=== PATIENT | female | born 1945 | race Caucasian/White ===

== ENCOUNTER 2024-04-22 09:38 | Outpatient (CLI) | payer MEDICARE, SELFPAY ==
--- NOTE | ~2024-04-22 | CT_ITS ---
Non-contrast CT scan of the Abdomen and Pelvis Clinical indication: Kidney stone Technique: 2.5 mm axial scans were obtained through the abdomen and pelvis without intravenous or or al contrast. Dose reduction technique was used on this scan by utilizing automated exposure control a nd iterative reconstruction technique. The dose-length product (DLP) was 475.41 mGy-cm. Findings: Images through the lung bases reveal no abnormalities. Small hiatal hernia noted. 7 mm nonobstructing left renal stone present. 4 mm nonobstructing right renal stone present. No urete ral stone or hydronephrosis on either side. The liver, spleen, pancreas, and adrenals appear normal. Cholecystectomy clips are present. There are atherosclerotic calcifications of the aorta. . There is no evidence of bowel obstruction. Images through the pelvis were performed. There is no evidence of ascites or lymphadenopathy. Urinary bladder unremarkable. No pelvic mass seen. No ascites. Impression: Nonobstructing bilateral renal stones, as above. Reviewed, dictated and finalized at [facility]. RAFT SERVICER Impression: Nonobstructing bilateral renal stones, as above.
--- OUTSIDE RECORDS SUMMARY | 2024-04-22 10:13 | XMS_ITS | Clinical Summary ---
Author Organization [facility] Address [address] [place] [address] Care Team Providers Care User Support Analyst Supervisor Name Role Phone Jackson Rapp MD Primary Care Provider [phone] Jordan Fuentes MD Unavailable [phone] Sam Wick MD Unavailable [phone] Miscellaneous, Not In File Unavailable Unava ilable Allergies Active Allergy Reactions Criticality Noted Date Comments Ciprofloxacin Other (See comments) Low 09/11/2017 Cipro causes thrush Medications citalopram (CeleXA) 20 mg tabletIndicati ons:Anxiety with Depression Take 1 tablet (20 mg total) by mouth daily 7 Active multivitamin capsule Take 1 capsule by mouth daily Active Lactobac no.41/Bifidoba ct no.7 (PROBIOTIC-10 ORAL) Take 1 tablet by mouth daily Active loratadine (CLARITIN) 10 mg tablet Take 1 tablet (10 mg total) by mouth daily Active acetaminophen 500 mg capsule Take 2 capsules (1,000 mg total) by mouth every 6 (six) hours as needed for fever 4 Active senna-docusate (PERICOLACE) 8.6-50 mg Take 1 tablet by mouth 2 (two) times a day as needed for constipation 60 tablet 4 Active traMADoL (ULTRAM) 50 mg tablet Take 1 tablet (50 mg total) by mouth every 6 (six) hours as needed for pain 27 tablet 1 4 Active Additional Information Patient not taking.Reported on 01/28/2024 atorvastatin (LIPITOR) 40 mg tablet Take 1 tablet (40 mg total) by mouth daily 90 tablet 3 4 025 Active chlorthalidone (HYGROTON) 25 mg tablet Take 0.5 tablets (12.5 mg total) by mouth daily 45 tablet 3 4 025 Active clopidogreL (PLAVIX) 75 mg tabletIndicati ons:Post CABG Take 1 tablet (75 mg total) by mouth daily 90 tablet 3 4 025 Active metoprolol XL (TOPROL-XL) 25 mg extended release tablet Take 1 tablet (25 mg total) by mouth daily 90 tablet 3 4 025 Active ergocalciferol (VITAMIN D) 50,000 unit capsule Take 1.25 mg by mouth once a week 4 Active alendronate (FOSAMAX) 70 mg tablet Take 1 tablet (70 mg total) by mouth once a week 4 Active nitroglycerin (NITROSTAT) 0.[address] 1 tablet (0.4 mg total) under the tongue every 5 (five) minutes as needed for chest pain May repeat dose q 5 min, up to 3 doses total 20 tablet [address] (NexIUM) 40 mg capsule Take 1 capsule (40 mg total) by mouth daily before breakfast 90 capsule [address] (NexIUM) 40 mg capsule Take 1 capsule (40 mg total) by mouth 4 025 Discontin ued(Reord er) Active Problems Problem Noted Date Diagnosed Date Mixed hyperlipidemia 01/28/2024 S/P CABG x 3 07/02/2023 Coronary artery disease due to calcified coronar y lesion 05/15/2023 Atherosclerosis of [place] co ronary artery of [place] heart without angina pectoris 05/08/2023 Abnormal stress test 04/30/2023 Angina pectoris, unspecified 04/30/2023 Chronic left-sided low back pain with left-sided sciatica 07/30/2019 Essential hypertension 07/30/2019 Depression 07/30/2019 History of total right knee replacement 03/27/19 20 Primary osteoarthritis of right knee 09/17/2018 Overview (09/17/2018): Added automatically from request for surgery [id number] Menopause present 09/09/2018 Idiopathic neuropathy 09/18/2017 Subungual hematoma of great toe of left foot 05/2017 Nail discoloration 08/22/2017 Screening for colon cancer 05/31/2017 Urge incontinence of urine 05/31/2017 Pain in joint of right knee 12/04/2016 Non morbid obesity due to excess calories 2016 Acute pain of right shoulder 02/09/2016 Hypertension due to endocrine disorder 6 Depression 11/16/2015 Cold thyroid nodule 08/17/2015 VALENTINA (obstructive sleep apnea) 08/17/2015 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 Multinodular goiter (nontoxic) 07/29/2015 PLMD (periodic limb movement disorder) 6 PNAR (perennial non-allergic rhinitis) 6 Fibrocystic breast changes 09/23/2009 Encounters Date Type Department Care Team Description 01/28/2024 11:00 AM RN UNIT MANAGER Office Visit [facility] at [address] [place] [phone] Sam Wick MD Atherosclerosis of [place] coronary artery of [place] heart without angina pectoris (Primary Dx); S/P CABG x 3; Mixed hyperlipidemia; Essential hypertension from Last 3 Months Surgical History Surgery Date Site/Laterality Comments KIDNEY SURGERY stent CHOLECYSTECTOMY 03/19/1995 - 03/18/1996 APPENDECTOMY 03/19/1956 - 03/18/1957 TOTAL KNEE ARTHROPLASTY 03/19/2018 - 03/18/2019 Right BACK SURGERY 03/19/2018 - 03/18/2019 cyst removal TRIGGER FINGER RELEASE Bilateral Medical History Medical History Date Comments Hypertension GERD (gastroesophageal reflux disease) Kidney stone Arthritis Depression Sleep apnea Thyroid nodule monitored Thyroid goiter Cataract Family History Medical History Relation Name Comments Alcohol abuse Brother Scoliosis Daughter Arthritis Father Cancer Father Clotting disorder Father Heart disease Father Heart disease Mother Pneumonia Mother Stroke Mother Arthritis Sister Relation Name Status Comments Brother Daughter Father Mother Sister Social History Tobacco Use Types Packs/Day Years Used Date Smoking Tobacco: Never Smokeless Tobacco: Never Tobacco Cessation:Counseling Given: Not Answered Alcohol Use Standard Drinks/Week Comments No 0 (1 standard drink = 0.6 oz pur e alcohol) [facility] Utilities Answer Date Recorded In the past 12 months has th e electric, gas, oil, or water company threatened to shut off services in your home? No 05/16/2023 Social Connection and Isolat ion Panel [NHANES] Answer Date Recorded In a typical week, how many times do you talk on the phone with family, friends, or neighbors? More than three times a week 05/16/2023 How often do you get togethe r with friends or relatives? Three times a week 05/16/2023 How often do you attend chur ch or rastafari services? More than 4 times per year 05/16/2023 Do you belong to any clubs o r organizations such as voodoo groups, unions, fraternal or athletic groups, or school groups? No 05/16/2023 How often do you attend meet ings of the clubs or organizations you belong to? Never 05/16/2023 Are you , , di vorced, , never , or living with a partner? 05/16/2023 AUDIT-C Answer Date Recorded Q1: How often do you have a drink containing alcohol? Never 05/16/2023 Q2: How many drinks containi ng alcohol do you have on a typical day when you are drinking? Patient does not drink Q3: How often do you have si x or more drinks on one occasion? Never 05/16/2023 Overall Financial Resource Strain (CARDIA) Answe r Date Recorded How hard is it for you to pa y for the very basics like food, housing, medical care, and heating? Not hard at all 05/16/2023 Hunger Vital Sign Answer Date Recorded Within the past 12 months, y ou worried that your food would run out before you got the money to buy more. Never true 05/16/19 24 Within the past 12 months, t he food you bought just didn't last and you didn't have money to get more. Never true 05/16/2023 PRAPARE - Transportation Answer Date Re corded In the past 12 months, has l ack of transportation kept you from medical appointments or from getting medications? No 04/20 In the past 12 months, has l ack of transportation kept you from meetings, work, or from getting things needed for daily living? No 05/16/2023 Housing Stability Vital Sign Answer Ron e Recorded In the last 12 months, was t here a time when you were not able to pay the mortgage or rent on time? No 05/16/2023 In the last 12 months, how many places have you lived? 1 05/16/2023 In the last 12 months, was t here a time when you did not have a steady place to sleep or slept in a halfway (including now)? No 05/16/2023 Housing Stability Vital Sign Answer Ron e Recorded In the last 12 months, was t here a time when you were not able to pay the mortgage or rent on time? No 05/16/2023 Number of Times Moved in the Last Year Not on fi le 05/16/2023 Homeless in the Last Year Not on file 2023 Personal Safety Answer Date Recorded Have you ever been in or are you currently in a harmful physical or emotional relationship or is someone making you feel afraid or unsafe? Denies 05/15/2023 Comments No Sex and Gender Information Value Date Recorded Sex Assigned at Not on file Legal Sex Female 1:28 AM RN UNIT MANAGER Gender Identity Not on file Sexual Orientation Not on file Obstetrics History Para Term AB IAB SAB Ectopic Multiple Livin g Live Births 3 3 3 Date Outcome GA Total Labor Labor/2nd/3rd Weight Sex Type Anes PTL Magy A1 A5 Name Clin Term Term Term Last Filed Vital Signs Vital Sign Reading Time Taken Comments Blood Pressure 121/81 01/28/2024 10:49 AM RN UNIT MANAGER Pulse 74 01/28/2024 10:49 AM RN UNIT MANAGER Temperature 36.8 ??C (98.2 ??F) 05/21/2023 8:24 AM CS T Respiratory Rate 18 07/02/2023 12:55 PM CDT Oxygen Saturation 96% 06/21/2023 11:24 AM CDT Inhaled Oxygen Concentration - - Weight 96.2 kg (212 lb) 01/28/2024 10:49 AM RN UNIT MANAGER Height 167.6 cm (5' 6 ) 01/28/2024 10:49 AM RN UNIT MANAGER Body Mass Index 34.22 01/28/2024 10:49 AM RN UNIT MANAGER Plan of Treatment Health Maintenance Due Date Last Done Comments Depression Screening 1945 Hepatitis C Screening 1945 Pneumococcal vaccine 65+ (1 of 2 - PCV) 11/21/1953 DTaP/Tdap/Td Vaccine (1 - Tdap) 11/21/1958 Hepatitis B Screening 11/21/1965 Zoster Vaccine (1 of 2) 11/21/1997 Well Visit 65+ 11/21/2012 Covid-19 Vaccine (2 - 2023-2 5 season) 2023 09/13/2020 Influenza Vaccine (#1) 2023 Fall Risk Assessment 05/20/2024 05/21/2023 Osteoporosis Screening-Bone Density Scan 05/02/2025 05/02/2023, 05/02/2023 Breast Cancer Screening-Mammogram Discontinued 01/15/2024, 01/15/2024, 01/15/2024, Additional history exists Procedures Procedure Name Priority Date/Time Associated Diagnosis Comments SCREENING MAMMOGRAM BILATERAL W BRENDAN Schedule Routine, Read Routine (OP Routine) 01/15/2024 2:30 PM CDT Screening mammogram, encounter for from Last 3 Months or Most Recently Relevant to Health Maintenance Results * Screening Mammogram Bilateral W Brendan (01/15/2024 2:30 PM CDT) Anatomical Region Laterality Modality Breast Bilateral Mammography 01/15/2024 7:15 PM CDT Impressions 01/15/2024 7:15 PM CDT There is no mammographic evidence of malignancy. A 1 year screening mammogram is recommended. BI-RADS: 2 - Benign. The patient has been or will be contacted. The patient will be entered into a reminder system with a target due date of 1 year for her next mammogram. Electronically signed by: Roselia Garcia M.D. Narrative 01/15/2024 7:15 PM CDT EXAMINATION: SCREENING MAMMOGRAM BILATERAL W BRENDAN ORDERING HEALTHCARE PROVIDER: SELF SCREENING MAMMOGRAM HISTORY: Routine screening mammography. COMPARISON: ??12/08/2022,11/15/2021, 10/27/2020, 10/24/2019 month 10/16/2018 TECHNIQUE: CC and MLO views of the bilateral breasts were obtained with digital technique using breast tomosynthesis with C view. Computer aided detection was utilized. FINDINGS: DENSITY: The breasts are almost entirely fatty. BREASTS: There are benign-appearing calcifications bilaterally. There are no suspicious masses, suspicious calcifications, or other suspicious findings in either breast. There has been no suspicious interval change. us Self Screening Mammogram IMG MAMMO PROCEDURES Fi nal Result from Last 3 Months or Most Recently Relevant to Health Maintenance Insurance [employer] MEDICARE A[employer] MEDICARE Advance Directives For more information, please contact: [phone] * Full Code (Latest Code Status on File) Date Activated Date Inactivated Comments 05/15/2023 2:03 PM 05/21/2023 8:13 PM * Full Code Date Activated Date Inactivated Comments 07/30/2019 12:47 PM 07/31/2019 5:38 PM Care Teams User Support Analyst Supervisor Relationship Specialty Start Date End Date Jackson Rapp MD 2 [facility] [address] [place] [address] PCP - General Family Medicine 12/08/22 [place] [id number] [facility] [address] [address] Surgeon Cardiothoracic Surgery 05/21/23 Sam Wick MD 2 [facility] [address] [place] [address] Consulting Physician Cardiology 05/21/23 Miscellaneous, Not In File 05/21/23
--- OUTSIDE RECORDS SUMMARY | 2024-04-22 10:13 | XMS_ITS | Patient Health Summary ---
Author Organization [facility] Address [address] [place] [address] Care Team Providers Care Receiving Distribution Station Operator Name Role Phone Jackson Rapp MD Primary Care Provider [phone] Note from [facility],non-owned Affiliates and Associated Physician Practices is amultiple site organization consisting of ambulatory clinics and hospital sitesin [place], [place], [place] and [place]. This disclosure is being madepursuant to the Care Everywhere program and may not contain all information available regarding this patient. Last updated 17.[facility] Allergies * Ciprofloxacin(Other) -Low Criticality Medications * Be aware that medications may not be up to date on this document. Alwaysverify current medications with the patient. * hydroCHLOROthiazide (MICROZIDE) 12.5 MG capsule Take 1 capsule by mouth every 24 hours * citalopram (CELEXA) 20 MG tablet(Started 06/05/2016) Take 1 tablet by mouth at bedtime * atenolol (TENORMIN) 25 MG tablet(Started 02/02/2017) Take 1 tablet by mouth once daily * Multiple Vitamins-Minerals (EYE VITAMINS PO) Take by mouth once daily * LORATADINE ALLERGY RELIEF PO Take by mouth once daily * Other 2 times daily Oligo from Melaleuca(vitamin supplement) * aspirin (ASPIRIN) 325 MG tablet aspirin 325 mg tablet Take 1 tablet twice a day by oral route. * gabapentin (NEURONTIN) 300 MG capsule(Started 02/02/2020) * HYDROcodone-acetaminophen (NORCO) 7.5-325 MG tablet(Started 12/30/2019) * NYAMYC 370250 UNIT/GM powder(Started 02/02/2020) * omeprazole (PRILOSEC) 20 MG capsule omeprazole 20 mg capsule,delayed release * sennosides (SENOKOT) 8.6 MG tablet every 24 hours * DHA-EPA-Vit D0-H82-Pkcie Acid (CARDIOVID PLUS) CAPS Take 1 tablet by mouth once daily Contains Fish oil Active Problems Problem Noted Date Diagnosed Date Essential hypertension 07/30/2019 Chronic left-sided low back pain with left-sided sciatica 07/30/2019 History of total right knee replacement 03/27/19 20 Primary osteoarthritis of right knee 11/08/2018 Hypertension due to endocrine disorder 6 Depression 11/16/2015 Social History Tobacco Use Types Packs/Day Years Used Date Smoking Tobacco: Never Smokeless Tobacco: Never Alcohol Use Standard Drinks/Week Comments Never 0 (1 standard drink = 0.6 oz pur e alcohol) AUDIT-C Answer Date Recorded Frequency of Alcohol Consumption Never 01/17/2019 Average Number of Drinks Not on file 019 Frequency of Binge Drinking Not on file 03/2018 Sex and Gender Information Value Date Recorded Sex Assigned at Not on file Gender Identity Not on file Sexual Orientation Not on file Last Filed Vital Signs Vital Sign Reading Time Taken Comments Blood Pressure 158/85 08/25/2020 8:21 AM CDT Pulse 54 08/25/2020 8:21 AM CDT Temperature 37 ??C (98.6 ??F) 02/14/2019 7:55 AM WRAP TURNER Respiratory Rate 18 02/14/2019 7:55 AM WRAP [facility]URNER Oxygen Saturation 95% 02/14/2019 7:55 AM WRAP TURNER Inhaled Oxygen Concentration - - Weight 101.2 kg (223 lb) 08/25/2020 8:21 AM CDT Height 167.6 cm (5' 6 ) 08/25/2020 8:21 AM CDT Body Mass Index 35.99 08/25/2020 8:21 AM CDT Medical Devices Implanted Type Area Wild Life Manager Device Identifier Shelf Expiration Date Model / Serial / Lot Cmnt Bone Djo Srg Cblt 40gm Hvisc Strl Implanted:Qty: 1 on 02/12/2019 by Meño Hirsch MD at [facility] Right: Knee [employer] 05/09/2020 [id number] / / [id number] Tray Tib 71mm Kn Cocr I Beam Implanted:Qty: 1 on 02/12/2019 by Meño Hirsch MD at [facility] Right: Knee [employer] 01/14/2029 [id number] / / [id number] Cmpnt Fem Kn Rt Cr Cmnt Prm Vngrd Intlk Implanted:Qty: 1 on 02/12/2019 by Meño iHrsch MD at [facility] Right: Knee [employer] 12/07/2028 [id number] / / [id number] Cmpnt Ptlr 28mm 1 Pg Wire Ascnt Arcm Kn Implanted:Qty: 1 on 02/12/2019 by Meño Hirsch MD at [facility] Right: Knee [employer] 02/01/2024 [id number] / / [id number] Brng [id number] Vngrd Arcm Kn Ant Stab Implanted:Qty: 1 on 02/12/2019 by Meño Hirsch MD at [facility] Right: Knee [employer] 09/07/2023 [id number] / / [id number] Procedures * IL TANGNTL BX SKIN SINGLE LES(Performed 08/25/2020) Performed for SCC (squamous cell carcinoma), hand, right * IL CHMSRG MOHS MG TQ H/N/H/F/G 1ST STAG 5 BLOC(Performed 08/25/2020) Performed for SCC (squamous cell carcinoma), hand, right * DERMATOPATHOLOGY(Performed 08/25/2020) Performed for SCC (squamous cell carcinoma), hand, right * DERMPATH SLIDE CONSULT(Performed 08/18/2020) * XR KNEE RIGHT 3VW(Performed 02/03/2020) Performed for Aftercare following right knee joint replacement surgery * XR KNEE RIGHT 3VW(Performed 03/25/2019) Performed for Acute pain of right knee * HGB HCT PANEL(Performed 02/14/2019) * HGB HCT PANEL(Performed 02/13/2019) * NEURAXIAL BLOCK(Performed 02/12/2019) * ARTHROPLASTY TOTAL KNEE(Performed 02/12/2019) * HOME CPAP/BIPAP FOR HOSP USE: NOCTURNAL 02(Performed 02/12/2019) * CARDIAC EKG ORDER(Performed 01/21/2019) * COMPREHENSIVE METABOLIC PANEL(Performed 01/17/2019) Performed for Preoperative examination * CULTURE MSSA/MRSA(Performed 01/17/2019) Performed for Preoperative examination Results * IL TANGNTL BX SKIN SINGLE LES (08/25/2020 3:53 PM CDT) Narrative Nima De La Fuente MD - 08/25/2020 3:53 PM CDT Nima De La Fuente MD ? 08/25/2020 ??3:54 PM Risks, benefits and alternatives to shave biopsy were discussed with the patient. Verbal consent was obtained. Encounter Diagnoses Name Primary? ? ? SCC (squamous cell carcinoma), hand, right Yes ? ? Neoplasm of uncertain behavior of skin ?? Location: R dorsal hand near 2nd MCP Skin prep: Alcohol Anesthesia: 1% lidocaine with epinephrine Hemostasis: Aluminum chloride Dressing and wound care discussed. Specimen(s) placed in a patient labeled container and sent to [facility] Dermatopathology. Patient agrees to phone call for results and message if not available. Nima De La Fuente MD PROCEDURE/MINOR SURG ICAL ORDERABLES * IL CHMSRG MOHS MG TQ H/N/H/F/G 1ST STAG 5 BLOC (08/25/2020 10:43 AM CDT) Narrative Nima De La Fuente MD - 08/25/2020 10:43 AM CDT Nima De La Fuente MD ? 08/25/2020 ??3:48 PM Date of Service: 08/25/2020 Surgery: Mohs micrographic surgery Tumor Type: Squamous cell carcinoma Location: right lateral hand Derm-Path PreOp Size: ??0.7x0.5 cm. PostOp Size: ??1.3x1.2 cm. Stages: 1 Repair Type: purse string Repair Size: 1.3x1.2cm Suture Material: monocryl 4-0 Mohs Level of Defect: fat Surgeon and Pathologist: Nima De La Fuente MD Assistants: Ochoa Kemp Indications for Mohs Surgery The patient has a 0.7x0.5 cm tumor located on the right lateral hand (triangulation 5 cm to right 1st MCP). ??Removal of the patient's tumor is complicated by the following clinical features: Clinical area critical for tissue conservation (Area H: central face, eyelids, eyebrows, nose, lips, chin, ear, periauricular, methodist, genitalia, hands, feet, ankles, nail units and areola); Poorly-defined clinical tumor borders. Based on my medical judgement, Mohs surgery is the most appropriate treatment for this cancer compared to other treatments. I discussed alternative treatments to Mohs surgery and specifically discussed the risks and benefits of curettage, excision with permanent sections, and foregoing treatment. The rationale for Mohs was explained to the patient and consent was obtained. The risks, benefits and alternatives to therapy were discussed in detail. Specifically, the risks of infection, scarring, bleeding, prolonged wound healing, incomplete removal, allergy to anesthesia, nerve injury and recurrence were addressed. Prior to the procedure, the treatment site was clearly identified and confirmed by the patient. All components of [place] Protocol/PAUSE Rule completed. Nima De La Fuente MD operated in two distinct and integrated capacities as the surgeon and pathologist. STAGE I: The patient was placed supine on the operating table. ??The cancer was identified, outlined with a marker, and verified by the patient. ??The entire surgical field was prepped with Hibiclens. ?? The surgical site was anesthetized using Lidocaine 1% with epinephrine 1:100,000 buffered with sodium bicarbonate 8.4% in a 1:10 ratio. The area of clinically apparent tumor was debulked with 2mm curette. The layer of tissue was then surgically excised using a #15 blade and was then transferred onto a specimen sheet maintaining the orientation of the specimen. Hemostasis was obtained using monopolar electrodessication. The wound site was then covered with a dressing while the tissue samples were processed for examination. The excised tissue was transported to the [facility] histology laboratory maintaining the tissue orientation. ??The tissue specimen was relaxed so that the entire surgical margin was in a a single horizontal plane for sectioning andinked for precise mapping. ??A precise reference map was drawn to reflect the sectioning of the specimen, colored inking of the margins, and orientation on the patient. ??The tissue was processed using horizontal sectioning ofthe base and continuous peripheral margins. ??The histopathologic sections were reviewed in conjunction with the reference map. Total blocks: ??1 Total slides: ?? 3 Frozen sections were examined by the surgeon. No additional tumor was identified on microscopic examination, therefore Mohs surgery was complete. Cell morphology: n/a Pathological pattern: n/a Depth of invasion: n/a Scar tissue: Not Present Perineural invasion: Not Present Inflammation obscuring possible tumor presence: Not Present Reconstruction: Purse String Closure Primary Surgeon : Leisa The open wound was cleansed with Hibiclens and draped in the usual sterile fashion. ??The area was infiltrated with Lidocaine 1% with epinephrine 1:100,000 buffered with sodium bicarbonate 8.4% in a 1:10 ratio. ??A circumferential horizontal buried suture was distributed evenly throughoutthe edge of the wound and the wound was drawn closed. Repair Size: ??1.3x1.2 cm Sutures Used: ??monocryl 4-0 The wound was cleansed with saline and vaseline was applied to the wound surface. A sterile pressure dressing was applied. ?? Wound care instructions were given verbally and in writing. ??The patient left the operating suite in stable condition. ?? Dr. De La Fuente performed the entire surgery, and documentation used to initiate this operative report. I entered the information in our [employer] DocFlowsheet with the information provided by Dr. De La Fuente on her handwritten, paper format, surgical worksheet, which was then used to initiate the create of this note. Dr. De La Fuente then reviewed and edited the note as needed to complete the note. Bruna Osman LPN Nima De La Fuente MD PROCEDURE/MINOR SURG ICAL ORDERABLES * DERMATOPATHOLOGY (08/25/2020 3:33 AM CDT) Case Report Dermatopathology Report ? Case: [id number] ? Authorizing Provider: ??Nima De La Fuente MD ?Collected: ? 08/25/2020 03:33 AM ? Ordering Location: ? [facility] and ?? Received: ?08/26/2020 11:13 AM ? Cutaneous Oncology ? Pathologist: ? Hilda Eugene MD ? Specimen: ?Skin, right dorsal hand near 2nd MCP ? 1 4:45 PM CDT DERMATOPATHOLOGY LABORATORY Final Diagnosis Specimen A. SKIN, right dorsal hand near 2nd MCP: LICHEN PLANUS-LIKE KERATOSIS (BENIGN LICHENOID KERATOSIS) (L82.1) 1 4:45 PM CDT DERMATOPATHOLOGY LABORATORY Clinical History BCC vs SCC vs LPLK 1 4:45 PM CDT DERMATOPATHOLOGY LABORATORY Gross Description Specimen A: Received is one formalin filled container labeled with the patient's name and designated right dorsal hand near 2nd MCP. The specimen consists of a shave biopsy measuring 6x4x1 mm. Jar 0. 4:45 PM CDT DERMATOPATHOLOGY LABORATORY Microscopic Description Specimen A. SKIN, right dorsal hand near 2nd MCP: The epidermis is mildly acanthotic. There is a lichenoid infiltrate with vacuolar changes of basilar keratinocytes and scattered necrotic keratinocytes. 1 4:45 PM CDT DERMATOPATHOLOGY LABORATORY Disclaimer An external and internal positive and negative controls are appropriate for the histochemical, immunohistochemical and immunofluorescence stain(s) in this case (if any), except where stated explicitly. The performance characteristics of the stain(s) cited in this report were developed and its performance characteristic determined by the Dermatopathology Laboratory at [facility], directed by Dr. Monae Haywood. These tests need not be, and therefore are not, approved by the [place] Food and Drug Administration. The tests are used for clinical purposes. Billing Codes Specimen Charges Stain Charges 06908 1 1 4:45 PM CDT DERMATOPATHOLOGY LABORATORY Embedded Images 1 4:45 PM CDT DERMATOPATHOLOGY LABORATORY Pathology/Cytolo gy TISSUE SPECIMEN FROM SKIN / Unknown 08/25/2020 3:33 AM CDT 08/26/2020 11:13 AM CDT Nima De La Fuente MD LAB - PATHOLOGY/CYTO LOGY ORDERABLES Performing Organization Address City/State/[facility] Co de Phone Number DERMATOPATHOLOGY LABORATORY [facility] - Department of Dermatology [facility] Medicine [address] [place] [address], [address] Floor [address] [phone] * DERMPATH SLIDE CONSULT (08/18/2020 12:00 AM CDT) Case Report Dermatopathology Report ? Case: [id number] ? Authorizing Provider: ??Nima De La Fuente MD ?Collected: ? 08/18/2020 12:00 AM ? Ordering Location: ? [facility] D[facility] ?Received: ?08/18/2020 10:05 AM ? Pathologist: ? Martha Rosas, ? MD ? Specimen: ?Slide(s), Right hand, OSC# [id number] ? 1 3:43 PM CDT DERMATOPATHOLOGY LABORATORY Final Diagnosis Specimen A. Slide(s), Right hand, OSC# [id number]: SUPERFICIAL (FOCALLY INVASIVE) SQUAMOUS CELL CARCINOMA ARISING IN AN ACTINIC KERATOSIS (C44.622) (see microscopic description and comment) 1 3:43 PM CDT DERMATOPATHOLOGY LABORATORY Clinical History Materials received from: [employer] [address] [place] [address] [place] [address] Received for Mohs [place] are 4 (H&E) slide(s) labeled [id number]. -Well differentiated Squamous cell carcinoma, microinvasive. -The lesion extends to the deep margin. All slides returned. Appointment Date: 08/06/2020 Any additional sections, special stains or immunohistochemical stains performed by our laboratory will be kept here on file. 1 3:43 PM CDT DERMATOPATHOLOGY LABORATORY Microscopic Description Specimen A. Slide(s), Right hand, OSC# [id number]: Sections reveal parakeratosis, acanthosis and keratinocyte dysmaturation which is most prominent in the lower epidermis. Focal nests are present in the dermis. COMMENT: This case was also reviewed by Dr. Jennifer Shaver who agrees with the diagnosis. 1 3:43 PM CDT DERMATOPATHOLOGY LABORATORY Disclaimer An external and internal positive and negative controls are appropriate for the histochemical, immunohistochemical and immunofluorescence stain(s) in this case (if any), except where stated explicitly. The performance characteristics of the stain(s) cited in this report were developed and its performance characteristic determined by the Dermatopathology Laboratory at [facility], directed by Dr. Monae Haywood. These tests need not be, and therefore are not, approved by the [place] Food and Drug Administration. The tests are used for clinical purposes. Billing Codes Specimen Charges Stain Charges 77159 1 1 3:43 PM CDT DERMATOPATHOLOGY LABORATORY Embedded Images 1 3:43 PM CDT DERMATOPATHOLOGY LABORATORY Pathology/Cytolog y SLIDE / Unknown 08/18/2020 08/18/2020 10:05 AM CDT Nima De La Fuente MD LAB - PATHOLOGY/CYTO LOGY ORDERABLES DERMATOPATHOLOGY LABORATORY [facility] - Department of Dermatology [address], [address] [phone] * XR KNEE RIGHT 3VW (02/03/2020 10:33 AM [facility]AP [facility]NER) Only the most recent of2 resultswithin the time period is included. Anatomical Region Laterality Modality Lower Extremity Computed Radiogr aphy Narrative 02/03/2020 10:35 AM [facility]NER Joi Gold ? 02/18/2020 ??4:44 PM Please see progress notes for result. Meño Hirsch MD DIAGNOSTIC IMAGING O RDERABLES * (ABNORMAL) HGB HCT PANEL (02/14/2019 3:21 AM [facility]) Only the most recent of2 resultswithin the time period is included. Hemoglobin 11.8(L) 12.0 - 15.6 gm/dL 02/14/2019 4:46 AM [facility] Hematocrit 38.6 35.9 - 45.5 % 02/14/2019 4:46 AM [facility] Blood BLOOD SPECIMEN / Unknown Venipuncture / Unknown 02/14/2019 3:21 AM WRAP TURNER 02/14/2019 4:36 AM [facility] Meño Hirsch MD LAB - HEMATOLOGY ORD ERABLES [facility] [address] [place] [address] * Neuraxial Block (02/12/2019 9:02 AM WRAP TURNER) Narrative Solomon Ramirez APRN-OPERATIONS/DISPATCH - 02/12/2019 9:02 AM WRAP TURNER Solomon Ramirez APRN-OPERATIONS/DISPATCH ? 02/12/2019 ??9:04 AM Neuraxial Block Note ?? Pre-Procedure: ?? Procedure Name: ??Neuraxial Block Patient Location: ??OR Referred By: Dr. Hirsch. Indications: ??surgical anesthesia Pre-Anesthetic Checklist: ??Patient identified, IV Checked, Risks and benefits discussed, Surgical consent verified, Monitors and equipment, Site examined, Pre-op evaluation done, Time-out performed, Informed consent obtained, Questions answered/anesthesia questions answered and Allergies reviewed Anticoagulation/ Anti-thrombosis status confirmed? ??Yes Supplemental O2: ??room air Monitors: ??BP, continuous pluse ox and EKG Patient Condition: ??awake Patient Sedated? ??Yes Procedure: ?? Block Type: ??Spinal Prep: ??Betadine Sterile Field: ??mask, cap/hat, sterile established and sterile gloves Approach: ??midline Skin was localized? ??Yes Skin localized with: lidocaine (XYLOCAINE) 1 % injection, 1 mL Spinal Block: ?? Needle Type: ??beveled Needle Length: ??90 mm Placement Site: ??L4-5 Number of Attempts: ??1 CSF: ??free flow, ?? aspiration before injection, ?? aspiration during injection, ?? aspiration after injection Degree of difficulty: ??none Procedure Tolerance: ??tolerated well Sensory Level: ??T8 Motor Blockade: ??Yes Position post procedure: ??supine Vital Signs: ??Vital signs monitored and stable throughout. ??See anesthesia record for details. Start Time: ??02/12/2019 8:15 AM End Time: ??02/12/2019 8:18 AM Total Time: ??3 Staff: ?? Anesthesia Provider: ??Solomon Ramirez, NOEMY-OPERATIONS/DISPATCH ?? - ?? performed the procedure Buddy Joaquin MD GENERAL ANESTHESIA O RDERABLES * CARDIAC EKG ORDER (01/21/2019 8:32 PM WRAP TURNER) Narrative 01/21/2019 8:32 PM [facility]AP [facility]NER Ordered by an unspecified provider. Scanned Document CARDIAC SERVICES ORD ERABLES * CULTURE MSSA/MRSA (01/17/2019 2:15 PM CDT) Culture Negative for Staphylococcus aureus (MRSA/MSSA) ARLEN 01/18/2019 8:53 PM CDT [facility] MICROBIOLOGY Microbiology SPECIMEN FROM NASAL FOSSAE / Unknown Collection / Unknown 01/17/2019 2:15 PM CDT 01/17/2019 2:31 PM CDT Martine BE LAB - MICROBI OLOGY ORDERABLES [facility] MICROBIOLOGY [address] [place], [place] [address], [facility] [phone] * (ABNORMAL) COMPREHENSIVE METABOLIC PANEL (01/17/2019 2:15 PM CDT) Glucose 104 70 - 105 mg/dL 01/17/2019 2:53 PM CDT [facility] Sodium 142 136 - 145 mmol/L 01/17/2019 2:53 PM CDT [facility] Potassium 4.1 3.5 - 4.7 mmol/L 01/17/2019 2:53 PM CDT [facility] Chloride 107 98 - 107 mmol/L 01/17/2019 2:53 PM CDT [facility] CO2 27 23 - 31 mmol/L 01/17/2019 2:53 PM CDT [facility] Calcium 10.0 8.4 - 10.4 mg/dL 01/17/2019 2:53 PM CDT [facility] Anion Gap 8 8 - 16 mmol/L 01/17/2019 2:53 PM CDT [facility] BUN 20 9.8 - 20.1 mg/dL 01/17/2019 2:53 PM CDT [facility] Creatinine 1.05 0.57 - 1.11 mg/dL 01/17/2019 2:53 PM CDT [facility] Alkaline Phosphatase 132 40 - 150 U/L 01/17/2019 2:53 PM CDT [facility] ALT 32 0 - 61 U/L 01/17/2019 2:53 PM CDT [facility] AST 24 5 - 34 U/L 01/17/2019 2:53 PM CDT [facility] Protein Total 6.3(L) 6.4 - 8.3 gm/dL 01/17/2019 2:53 PM CDT [facility] Albumin 4.0 3.2 - 4.6 gm/dL 01/17/2019 2:53 PM CDT [facility] Bilirubin Total 0.3 0.2 - 1.0 mg/dL 01/17/2019 2:53 PM CDT [facility] eGFR by MDRD 52 mL/min/1.7 3m2 01/17/2019 2:53 PM CDT [facility] eGFR by MDRD >60 mL/min/1.7 3m2 01/17/2019 2:53 PM CDT [facility] Blood BLOOD SPECIMEN / Unknown Venipuncture / Unknown 01/17/2019 2:15 PM CDT 01/17/2019 2:31 PM CDT Martine Danielle [employer] [facility] - EMERGENCY VEHICLE OPERATOR RY ORDERABLES [facility] [address] [place] [address] Care Teams Receiving Distribution Station Operator Relationship Specialty Start Date End Date Jackson Rapp MD [address] [address] PCP - General Family Medicine 07/26/23
--- OUTSIDE RECORDS SUMMARY | 2024-04-22 10:13 | XMS_ITS | Encounter Summary ---
Author Organization [facility] Address [address] [place] [address] Care Team Providers Care Grocery Team Member Name Role Phone Jackson Rapp MD Primary Care Provider [phone] Encounter Details Date Type Department Care Team (Late st Contact Info) Description 08/18/2020 Lab Requisition [facility] [address] [facility] [facility] [place] [id number] Nima De La Fuente MD [address] [place] [address] Social History Tobacco Use Types Packs/Day Years [...] on file Sexual Orientation Not on file documented as of this encounter Functional Status Functional Status Response Date of Assess ment Is person deaf or have serious hearing difficult y? No 02/14/2019 Is person blind or have serious difficulty seein g? No 02/14/2019 Does person have serious dif ficulty walking/climbing stairs? Yes 02/14/2019 Does person have difficulty dressing/bathing? No 02/14/2019 Does person have difficulty doing errands alone? Yes 02/14/2019 Cognitive Status Response Date of Assessm ent Does person have difficulty concentrating/remembering/making decisions? No 02/14/2019 documented as of this encounter Plan of Treatment Not on file documented as of this encounter Procedures Procedure Name Priority Date/Time Associated Diagnosis Comments DERMPATH SLIDE CONSULT Routine 08/18/2020 12:00 AM CDT documented in this encounter Results * DERMPATH SLIDE CONSULT (08/18/2020 12:00 AM CDT) Case Report Dermatopathology Report ? Case: [id number] ? Authorizing Provider: ??Nima De La Fuente MD ?Collected: ? 08/18/2020 12:00 AM ? Ordering Location: ? [facility] ?Received: ?08/18/2020 10:05 AM ? Pathologist: ? Martha Rosas, ? MD ? Specimen: ?Slide(s), Right hand, OSC# [id number] ? 3:43 PM CDT DERMATOPATHOLOGY LABORATORY Final Diagnosis Specimen A. 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 -Well differentiated Squamous cell carcinoma, microinvasive. -The lesion extends to the deep margin. All slides returned. Appointment Date: 08/06/2020 Any additional sections, special stains or immunohistochemical stains performed by our laboratory will be kept here on file. 3:43 PM CDT DERMATOPATHOLOGY LABORATORY Microscopic Description Specimen A. Slide(s), Right hand, OSC# [id number]: Sections reveal parakeratosis, acanthosis and keratinocyte dysmaturation which is most prominent in the lower epidermis. Focal nests are present in the dermis. COMMENT: This case was also reviewed by Dr. Jennifer Shaver who agrees with the diagnosis. 3:43 PM CDT DERMATOPATHOLOGY LABORATORY Disclaimer An external and internal positive and negative controls are appropriate for the histochemical, immunohistochemical and immunofluorescence stain(s) in this case (if any), except where stated explicitly. The performance characteristics of the stain(s) cited in this report were developed and its performance characteristic determined by the Dermatopathology Laboratory at [facility], directed by Dr. Monae Haywood. These tests need not be, and therefore are not, approved by the [place] Food and Drug Administration. The tests are used for clinical purposes. Billing Codes Specimen Charges Stain Charges 59725 1 3:43 PM CDT DERMATOPATHOLOGY LABORATORY Embedded Images 06/02/202 1 3:43 PM CDT DERMATOPATHOLOGY LABORATORY Pathology/Cytolog y SLIDE / Unknown 08/18/2020 08/18/2020 10:05 AM CDT Nima De La Fuente MD LAB - PATHOLOGY/CYTO LOGY ORDERABLES DERMATOPATHOLOGY LABORATORY [facility] - Department of Dermatology [facility] Special[facility] Medicine [address] [place] [address], [address] [phone] documented in this encounter Visit Diagnoses Not on filedocumented in this encounter Care Teams Grocery Team Member Relationship Specialty Start Date End Date Jackson Rapp MD [address] [place] [address] PCP - General Family Medicine 07/26/23 documented as of this encounter
--- OUTSIDE RECORDS SUMMARY | 2024-04-22 10:13 | XMS_ITS | Referral Summary ---
Author Organization [facility] Address [address] [place] [id number] Care Team Providers Care Manager Engagement Name Role Phone Jackson Rapp MD Primary Care Provider [phone] Jordan Fuentes MD Unavailable [phone] Sam Wick MD Unavailable [phone] Miscellaneous, Not In File Unavailable Unava ilable Encounters Date Type Department Care Team Description 01/28/2024 11:00 AM RESEARCH ADMINISTRATOR Office Visit [employer] [facility] at [address] [place] [address] Sam Wick MD Atherosclerosis of [place] coronary artery of [place] heart without angina pectoris (Primary Dx); S/P CABG x 3; Mixed hyperlipidemia; Essential hypertension from Last 3 Months Allergies Active Allergy Reactions Criticality Noted Date [...] calcified coronar y lesion 05/15/2023 Atherosclerosis of [place] co ronary artery of [place] heart without angina pectoris 05/08/2023 Abnormal stress test 04/30/2023 Angina pectoris, unspecified 04/30/2023 Chronic left-sided low back pain with left-sided sciatica 07/30/2019 Essential hypertension 07/30/2019 Depression 07/30/2019 History of total right knee replacement 03/27/19 Primary osteoarthritis of right knee 09/17/2018 Overview (09/17/2018): Added automatically from request for surgery [id number] Menopause present 09/09/2018 Idiopathic neuropathy 09/18/2017 Subungual [...] non-allergic rhinitis) 6 Fibrocystic breast changes 09/23/2009 Social History Tobacco Use Types Packs/Day Years Used Date Smoking Tobacco: Never Smokeless Tobacco: Never Tobacco Cessation:Counseling Given: Not Answered Alcohol Use Standard Drinks/Week Comments No 0 (1 standard drink = 0.6 oz pur e alcohol) [facility] Utilities Answer Date Recorded In the past 12 months has [employer], gas, oil, or water company threatened [...] often do you attend chur ch or yarsani services? More than 4 times per year 05/16/2023 Do you belong to any clubs o r organizations such as mandaeism groups, unions, fraternal or athletic groups, or [...] place to sleep or slept in a intermediate (including now)? No 05/16/2023 Housing Stability Vital [...] on file Legal Sex Female 1:28 AM RESEARCH ADMINISTRATOR Gender Identity Not on file Sexual Orientation Not on file Last Filed Vital Signs Vital Sign Reading Time Taken Comments Blood Pressure 121/81 01/28/2024 10:49 AM RESEARCH ADMINISTRATOR Pulse 74 01/28/2024 10:49 AM RESEARCH ADMINISTRATOR Temperature 36.8 ??C (98.2 ??F) 05/21/2023 8:24 AM CS T Respiratory Rate 18 07/02/2023 12:55 PM CDT Oxygen Saturation 96% 06/21/2023 11:24 AM CDT Inhaled Oxygen Concentration - - Weight 96.2 kg (212 lb) 01/28/2024 10:49 AM RESEARCH ADMINISTRATOR Height 167.6 cm (5' 6 ) 01/28/2024 10:49 AM RESEARCH ADMINISTRATOR Body Mass Index 34.22 01/28/2024 10:49 AM RESEARCH ADMINISTRATOR Plan of Treatment Not on file Procedures Procedure Name Priority Date/Time Associated Diagnosis [...] Advance Directives For more information, please contact: [phone] * Full Code (Latest Code Status on File) Date Activated Date Inactivated Comments 05/15/2023 2:03 PM 05/21/2023 8:13 PM * Full Code Date Activated Date Inactivated Comments 07/30/2019 12:47 PM 07/31/2019 5:38 PM Care Teams Manager Engagement Relationship Specialty Start Date End Date Jackson Rapp MD [address] [facility] [address] [place] [address] PCP - General Family Medicine 12/08/22 [place] [address] [facility] [address] [facility] [address] [place] [address] Surgeon Cardiothoracic Surgery 05/21/23 Sam Wick MD 2 [facility] [address] [place] [address] Consulting Physician Cardiology 05/21/23 Miscellaneous, Not In File 05/21/23
--- OUTSIDE RECORDS SUMMARY | 2024-04-22 10:13 | XMS_ITS | Data Portability ---
Author Organization [place] - [employer], Main Office Address [address] [place] [address] Assessment Encounter Date Assessment Date Assessment LastModified by Organization Details LastModified Time 06/16/2022 06/16/2022 Patient returns. She is here for follow-up of her right long and ring finger trigger fingers. She had cortisone shots in both fingers in December of 2021. she also had a cortisone shot into the CMC joint of her right thumb at that time. All 3 shots were very helpful until a few weeks ago when the pain came back and she has had recurrent locking symptoms and pain in the A1 faiza regions of both right long and ring fingers and soreness in the CMC joint of the right hand with use. On exam today she has no redness swelling or warmth in the hand or digits. She does have moderate tenderness over the A1 pulleys of the right long and ring fingers and pronounced locking when she makes a fist and tries to extend her fingers with pronounced triggering on extension. She still has full extension of both digits. There is moderate tenderness but without swelling of the CMC joint. 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 Patient would like to proceed with A1 faiza release surgically of the right long and ring fingers. She had the left long done 2 years ago and it has done very well for and she is asymptomatic. She would like cortisone shot in the right thumb CMC joint. We did discuss the option of CMC arthroplasty and I discussed with her what that entails and I explained that my partner Dr. Michaels does these very frequently. After considering that option she would like to just have the shot for now and hopefully put off surgery on that joint for the future. I have discussed risks of surgery with her detail. She understands and wishes to proceed. 30 minutes were spent in total care this patient more than half the time spent in [facility] care. Not available 06/18/2022 13:44:11 07/17/2022 07/17/2022 HPI: Patient ret urns. She is here for follow-up of her A1 faiza releases of her right 3rd and 4th fingers. She is 12 days out. She has had no triggering since time surgery. Physical exam: Patient's issues are well healed. Stitches were all removed. She has full range of motion of both fingers without any triggering. Impression: Patient is 12 days out from right 3rd and 4th A1 faiza releases. Overall she is doing very well. She may use the hand as comfort allows. We will see her back as needed. [email or web address] Not available 07/17/2022 15:00:49 07/27/2022 07/27/2022 patient returns. She is now 3 weeks after right 3rd and 4th finger trigger finger releases. Her ring finger is doing great but she still has some difficulties with the long finger. She notes that she can not fully extend the metacarpophalangeal joint actively. She lacks about 5??. Passively with prior stretch she is able to hyperextend the joint by 5?? without difficulty. She also notices a hard nodule on palpation and on exam today she has about a 3 mm diameter nodular mass under the flexor crease at the base of the finger. This would be on the surface of the A2 faiza. It is central and I believe this is a flexor tendon sheath cyst her incisions are well healed. She has full active flexion and extension without any triggering. She is taking meloxicam daily for her back. I which encouraged her to continue with the prior stretch exercise. She has some residual tenosynovitis of the 3rd finger and the tendon proximal to the A2 faiza is likely a little bit swollen this is why she has of mild impediment to achieving full active hyper extension actively. She can do it easily passively. The tendon is likely to a gradually improve with time. If does not over improve over the next month I would recommend a cortisone injection into the flexor tendon sheath and strive to have the needle go through the central midline ganglion sheath the A2 flexor tendon sheath which will allow that to deflate hopefully the cortisone will keep it from coming back. I would offer that to her now but I think it is a little bit soon after recent surgery and there might be risk of infection doing that so close to the time surgery just 3 days ago. I will see her back in 4 weeks assess her progress and I have encouraged continue with gentle per stretch exercise several times a day. Not available 07/27/2022 11:40:09 09/18/2022 09/18/2022 Patient returns for follow-up of her right hand. She is now proximally 10 weeks out after A1 faiza releases of the right 3rd and 4th fingers. She still has soreness at times. If she sleeps with her fist clenched, she will at times wake up with pain in the right hand. She still notices a very slight swelling in the soft tissue pad between volar incisions between the centers of each of the A1 pulleys of the small through index fingers. She notes that the nodule that she had it we could feel 7 weeks ago ulnar aspect of the volar flexion crease the base of the 3rd finger has resolved. She has had no triggering and continues to have full flexion extension. At last visit she lacked about 5?? of active extension at the MP joint of her right long finger. Currently She has full active extension of the MP joint to 0?? and passively she has 5?? of hyperextension. the PIP joint has about 2?? of residual extension lag in the long finger. Barely perceptible. She has noticed some superficial nodular areas 2 of them at the palmar flexion crease just proximal to the incisions and these I explained our reactions to having surgery that some people have where the superficial palmar fascia reacts and makes some fibrous nodules. These are nontender on exam today. I do not believe these are contributing to her symptoms since they are nontender. She also hypothesized that she is having problems with this right hand because her sutures were too tight and she feels the sutures were too tight because when she would make a tight fist right after surgery she would feel soreness from the sutures she believes. The soreness did not change after the sutures were removed however so I do not believe sutures were the cause of her discomfort immediately postoperatively or now. Her incisions look perfect. She has a very fine thin line at each incision with no keloid. I assured her that the sutures were under perfect tension. They were of 5 0 nylon and I put him in each 1 with care under loupe magnification to approximate the skin without strangulating the skin. On exam she has puffiness between the A1 pulleys of index through small fingers equally on both hands. I pointed this out to her and she acknowledged that she can see that But notes that the puffiness is very slightly more pronounced in these 3 areas between the A1 pulleys on the right hand than the left. There is no edema or firmness. The swelling is soft and supple and represents the subcutaneous fat collections between the A1 pulleys are normally present somewhat accentuated by the complete absence of any swelling directly over the volar aspects of the A1 pulleys of each finger. She has had the A1 pulleys released in the 3rd and 4th fingers of the left hand in argues that she does not have any problems with her left hand and does not recall having any pain after surgery on the left hand. She has mild tenderness over the A1 faiza area of long finger today. She has full active flexion of all digits and active extension without any catching. Impression: Unfortunately, Mrs. 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 I have explained to her that release of the A1 faiza does not necessarily restore the tendon to perfect health. Eliminates the squeezing that the A1 faiza applies to the swollen inflamed tendon and the triggering that it causes when the swollen part of the tendon snaps across the A1 faiza segment of the tendon sheath but release of the tendon she does not necessarily cure all tendinitis that can be multifactorial in its cause. I suspect that she recovered more easily on the left hand due to the flexor tenosynovitis left hand being less severe it was when she had surgery on the right hand. I think she will continue to improve but she may need to modify her activities little bit. She should probably try to avoid falling asleep with her right hand the clenched fist position and should at least for the time being avoid heavy repetitive gripping. She is very right handed she states which may be aggravating this a little more. I have offered to send her to physical therapy which can be helpful but she declines. She would like to do exercises on her own. I have taught her the prayer stretch exercise which is frequently helpful and coached her on doing this properly. She has tried the meloxicam previously Which did not seem to make any difference. I think a Medrol Dosepak may be helpful to quiet this down acutely. I will see her back in another 4 weeks assess her progress. Not available 09/19/2022 10:32:45 Plan of Treatment Reminders Order Date Submit Date Provider Last Modified By Organization Details Last Modified Time Details Appointments None recorded. Lab None recorded. Referral None recorded. Procedures None recorded. Surgeries None recorded. Imaging None recorded. Medication Orders Medrol (Darnell) 4 mg tablets in a dose pack 023 023 [facility][id number], [address] [place], [address], 10:08:46 Patient TargetsNo targets recorded. Patient InstructionsNo instructions recorded. Reason for Referral None Reported. Results Created Date Observation Date Name Description Value Unit Range Abnormal Flag Note LastModifiedBy Organization Detail LastModifiedTime 12/20/19 22 12/20/2021 XR, hand No observ ation record ed. [id number] [facility] [address], [place], [address], 05/17/2022 23:04:15 07/06/19 23 06/25/2022 elect jenna larry am No observ ation record ed. [email or web address] [facility] (Radiology) [address] [place] [address], [address], 07/05/2022 16:09:43 Result Notes None recorded. Problems Name Problem SNOMED Code Status Onset Date Resolution Date Notes Provider Name and Address Organization Details Recorded Time Pain in right thumb 0780606716746 102 Active 2021 Not Available [facility] 3 23:03:08 Trigger finger of right hand 2461213103621 9101 Active 2021 Not Available [facility] 3 23:03:08 Pain in right hand 9181417630024 09 Active 2021 Not Available [facility] 3 23:03:08 Essential hypertensi on 69894439 Active 2022 Agustina Kimbrough, HAND CARVER null, [place] - [facility] [employer] 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 Procedures Surgical History Date Name Laterality Status Provider Name and Address Organization Details Recorded Time total knee replacement completed Not Available [facility] 05/17/2022 23:02:43 Back Surgery completed Not Available [facility] 05/17/2022 23:02:43 Appendectomy completed Not Available [facility] 05/17/2022 23:02:43 repair of gallbladder completed Not Available [facility] 05/17/2022 23:02:43 Imaging Results Imaging Date Name Status LastModified by Organization Details LastModified Time 12/20/2021 XR, hand completed [id number] [facility] [address], [place], [address], 05/17/2022 23:04:15 06/25/2022 electrocardiogram completed [email or web address] [facility] (Radiology) [address] [place] [address], [address], 07/05/2022 16:09:43 Procedure Notes None recorded. Medical Equipment None Reported. Allergies Allergen ID Allergen Name Allergen Category Reaction Reaction Severity Criticality Documentation Date Start Date Code Code System Note Provider Name and Address Organization Details Recorded Time 73988 Cipro medicatio n Not available Not available Not available 05/17/202244654 3 RxNorm Not Available [facility] 23:04:06 Medications Name Sig Start Date Stop Date Status Note LastModified by Organization Details LastModified Time amoxicillin 500 mg capsule 06/16 completed Not Available Not Available Not Available nystatin 100,000 unit/mL oral suspension 12/19 completed Not Available Not Available Not Available cefuroxime axetil 250 mg tablet 12/19 completed Not Available Not Available Not Available azithromyci n 250 mg tablet 12/19 completed Not Available Not Available Not Available tizanidine 4 mg tablet 09/06 completed Not Available Not Available Not Available hydrocodone 5 mg-acetamin ophen 325 mg tablet 09/06 completed Not Available Not Available Not Available bupivacaine HCl 0.5 % (5 mg/mL) injection solution Take 1 mg by injection route. active Not Available Not Available No t Available atenolol 25 mg tablet active Not Available Not Available No t Available sulfamethox azole 800 mg-trimetho prim 160 mg tablet 09/06 completed Not Available Not Available Not Available amoxicillin 875 mg tablet 06/01 completed Not Available Not Available Not Available citalopram 20 mg tablet active Not Available Not Available Not Available Kenalog 10 mg/mL suspension for injection In office injection administe red by the provider 06/16 completed NDC: 0003- 0494- 20 Not Available Not Available Not Available phenazopyri dine 100 mg tablet 12/19 completed Not Available Not Available Not Available hydrocodone 7.5 mg-acetamin ophen 325 mg tablet 12/19 completed Not Available Not Available Not Available cephalexin 500 mg capsule 12/19 completed Not Available Not Available Not Available gabapentin 300 mg capsule 12/19 completed Not Available Not Available Not Available omeprazole 20 mg capsule,del ayed release active Not Available Not Available Not Available nystatin 100,000 unit/gram topical powder 12/19 completed Not Available Not Available Not Available methylpredn isolone 4 mg tablets in a dose pack TAKE 6 TABLETS ON DAY 1 DIRECTED ON PACKAGE AND DECREASE BY 1 TAB EACH DAY FOR A TOTAL OF 6 DAYS active Not Available Not Available No t Available amoxicillin 875 mg-potassiu m clavulanate 125 mg tablet TK 1 T PO BID 09/06 completed Not Available Not Available Not Available nitrofurant oin monohydrate /macrocryst als 100 mg capsule 07/17 completed Not Available Not Available Not Available Multiple Vitamin-Min erals tablet Take by oral route. 2020 active Not Available Not Available Not Avai lable aspirin 2020 active Not Available Not Available Not Avai lable CardioVid 06/16 completed Not Available Not Available Not Available lidocaine (PF) 10 mg/mL (1 %) injection solution In office injection administe red by the provider 06/01 completed NDC: 0409- 4276- 17 Not Available Not Available Not Available hydrochloro thiazide 12.5 mg tablet active Not Available Not Available Not Available ropivacaine (PF) 5 mg/mL (0.5 %) injection solution In office injection administe red by the provider 06/16 completed Not Available Not Available Not Available Advanced Probiotic 2020 active Not Available Not Available Not Avai lable Yuvafem 10 mcg vaginal tablet INSERT 1 TABLET PER VAGINA EVERY OTHER DAY FOR 14 DAYS active Not Available Not Available No t Available ID NOW COVID-19 Test Kit TEST DIRECTED TODAY 06/16 completed Not Available Not Available Not Available Vitals Date Recorded Body mass index (BMI) Body height Body weight Provider Name and Address Organization Details Last Updated DateTime 05/17/2022 35.8 kg/m2 165.1 cm 02227.36 g Not Available [employer] 05/17/2022 23:02:46 Date Recorded Body height Provider Name an d Address Organization Details Last Updated DateTime 06/16/2022 165.1 cm Tamie Green [facility] [employer] [facility] 06/16/2022 11:37:20 Date Recorded Body height Provider Name an d Address Organization Details Last Updated DateTime 07/17/2022 165.1 cm Agustina Kimbrough [facility] [employer] [facility] 07/17/2022 14:37:31 Date Recorded Body height Provider Name an d Address Organization Details Last Updated DateTime 07/27/2022 165.1 cm Tamie Green [facility] [employer] [facility] 07/27/2022 10:42:44 Date Recorded Body height Provider Name an d Address Organization Details Last Updated DateTime 09/18/2022 165.1 cm Tamie Green [facility] [employer] [facility] [employer] [facility] 09/18/2022 16:42:38 Social History Question Answer Notes LastModified by [employer] Details LastModified Time What Is Your Level Of Alcohol Consumption? None [id number] Information not available 05/17/2022 Sex: Unknown Functional Status Question Answer Note LastModified by [employer] Details LastModified Time What is your exercise level? None [id number] Information not available 05/17/2022 Mental Status None recorded. Family History Relationship Description Onset Age of this Age Resolved Age Notes LastModified by Organization Details LastModified Time Father Heart disease [id number] Not available 05/17/2022 23:02:43 Father Family history of malignant neoplasm [id number] Not available 05/17/2022 23:02:43 Mother Heart disease [id number] Not available 05/17/2022 23:02:43 Medical History Condition Response BLINDNESS N KIDNEY STONES N MRSA N CARPAL TUNNEL SYNDROME N LUNG DISEASE/DISORDER N HISTORY OF DRUG ABUSE N RADIATION / CHEMOTHERAPY N COPD N SPORTS INJURY N ANKLE PAIN N BLOOD DISEASES N SCHIZOPHRENIA N SHOULDER PAIN N DEPRESSION (INCLUDING POST ) N BOWEL PROBLEMS N STROKE/TIA N ULCERS N KNEE PAIN N BENIGN PROSTATIC HYPERPLASIA N OBESITY N GERD/NAUSEA N ANEURYSM N URINARY/BLADDER/KIDNEY PROBLEMS N CORONARY ARTERY DISEASE (CAD) N ADDICTION CONCERNS N USE OF BLOOD THINNERS N SKIN PROBLEMS N EMPHYSEMA N MUSCLE,JOINT OR BONE PROBLEMS N DVT N STOMACH ULCERS N BLOOD CLOTS N USE OF NSAIDS N CONCUSSION OR SPINAL TRAUMA N NEUROPATHY N AIDS/HIV N FRACTURES N HYPERTENSION Y ELBOW PAIN N TOURETTE'S N Metal allergy N ANXIETY DISORDER N BLOOD TRANSFUSION N ANEMIA/BLOOD DISORDER N BIPOLAR DISORDER N BRONCHITIS N OSTEOARTHRITIS N TUBERCULOSIS N FOOT PROBLEM N HEART VALVE DISORDERS N ALLERGIES/HAYFEVER N SOFT TISSUE INJURY N INFECTIOUS DISEASE N HEART ARRHYTHMIA N INSOMNIA N HIGH CHOLESTEROL / HYPERLIPIDEMIA N RHEUMATOID ARTHRITIS N EDEMA N CHRONIC PAIN SYNDROME N CAROTID BLOCKAGE N BACK / NECK PROBLEMS N HAVE YOU BEEN HOSPITALIZED OR SEEN [facility] IN THE PAST YEAR ? N BURSITIS N HERNIATED DISC N DIALYSIS N FIBROMYALGIA N OSTEOPOROSIS N ARTHRITIS N NO SIGNIFICANT PAST MEDICAL HISTORY N PERIPHERAL NEUROPATHY N DIABETES, TYPE N HEARTBURN / REFLUX N HEPATITIS / LIVER DISEASE N GOUT N ALZHEIMER'S DISEASE N SLEEP DISORDER N HERPES N HEADACHES/MIGRAINES N SEIZURES/EPILEPSY N VASCULAR DISEASE N Blood Disorder N HIP PAIN N DIZZINESS N HEAD TRAUMA OR INJURY N HEART DISEASE/HEART PROBLEMS N MULTIPLE SCLEROSIS N CANCER: SPECIFY Y CARDIAC ARRHYTHMIA N ANESTHESIA COMPLICATIONS N ATRIAL FIBRILLATION N AUTOIMMUNE DISEASE N Gynecological HistoryNo gynecological history recorded. Obstetrics History GPAL:G 0 P 0 0 0 0 Past Encounters Encounter ID Performer Location Encounter Start Date Encounter Closed Date Diagnosis/Indication Diagnosis SNOMED-CT Code Diagnosis ICD10 Code Diagnosis Note [id number] [facility] [address] [place] [address] 09/06/2020 00:00:00 09/06/2020 17:10:08 [id number] [facility] [address] [place] [address] 02/04/2021 00:00:00 02/04/2021 09:44:30 [id number] [facility] [address] [place] [address] 05/13/2021 00:00:00 05/13/2021 13:34:09 [id number] [facility] [address] [place] [address] 06/01/2021 00:00:00 06/01/2021 11:26:12 [id number] [facility] [address] [place] [address] 12/19/2021 00:00:00 12/25/2021 15:33:25 [id number] Tamir Lyon MD [facility] [address] [place] [address] 06/16/2022 11:28:40 06/19/2022 09:59:02 Pain in right hand 4793872178 05904 M79.641 [id number] BRET Garvin [facility] [address] [place] [address] 07/17/2022 14:33:24 07/17/2022 16:18:07 Trigger finger of right hand 7241733840 7278400 M65.331 M65.341 [id number] Tamir Lyon MD [facility] [place] [address] [place] [address] 07/27/2022 10:41:06 07/27/2022 11:44:46 Postoperative visit 964478041 Z09 Arthritis of first carpometacarpal joint of right hand 0735692443 233778 M13.841 [id number] Tamir Lyon MD [facility] [address] [place] [address] 09/18/2022 16:34:33 09/20/2022 08:44:00 Arthritis of first carpometacarpal joint of right hand 9200174127 303238 M13.841 Health Concerns Section Related Observation LastModified by Organization Detai ls LastModified Time None Recorded Concern Status LastModified by Organization Details LastModified Time None Recorded Advance Directives Directive None Recorded Payers Encounter Date Sequence Insurance Name Policy Number Policy Syed Covered Member ID Syed Member ID Guarantor Name 06/16/2022 1 [facility] (MEDICARE REPLACEMENT/A DVANTAGE - HMO) [id number] Diana Mayen [id number] Diana Mayen 07/17/2022 1 [facility] (MEDICARE REPLACEMENT/A DVANTAGE - HMO) [id number] Diana Mayen [id number] Diana Mayen 07/27/2022 1 [facility] (MEDICARE REPLACEMENT/A DVANTAGE - HMO) [id number] Diana Mayen [id number] Diana Mayen 09/18/2022 1 [facility] (MEDICARE REPLACEMENT/A DVANTAGE - HMO) [id number] Diana Mayen [id number] Dianamoriah Mayen OBGyn Episode No OBEpisode recorded.
--- OUTSIDE RECORDS SUMMARY | 2024-04-22 10:13 | XMS_ITS | Data Portability ---
Author Organization [facility] Ed GAITAN Address [address] [place] [address] Care Team Providers Care Pickle Cutter Name Role Phone HERNANDO BYNUM Rug Layer CHECO MCCLAIN Primary Care Provider Assessment Encounter Date Assessment Date Assessment LastModified by Organization Details LastModified Time 11/07/2019 11/07/2019 Pt was instructed to let us know if she does not improve on present treatment. [email or web address] Not available 11/07/2019 17:51:18 02/23/2020 02/23/2020 contact finger assembler exam benign today, no new issues had a rt. knee replacement and some sciatic cyst removed. Now seeing Fernando for pain mgmnt. grandson Jose turned 19 today ( surgery / hygroma baby) Not available 02/23/2020 14:45:34 04/05/2021 04/05/2021 contact finger assembler exam benign, no new issues Not available 04/05/2021 12:43:52 09/07/2022 09/07/2022 contact finger assembler exam benign discussed vaginal atrophy / dyspareunia jannie start some vagifem and check back with results Not available 09/07/2022 15:07:09 09/18/2023 09/18/2023 contact finger assembler exam benign gave her congrats on making it through triple bypass Not available 09/18/2023 12:03:38 Plan of Treatment Reminders Order Date Submit Date Provider Last Modified By Organization Details Last Modified Time Details Appointments None recorded. Lab fecal occult blood, stool 2019 020 MICHAEL In-Office Order, Internal Use Only DO Not Attach Compendium DO Not Attach Compendium, Do Not Delete/merge, [id number] 0 14:44:59 Referral None recorded. Procedures None recorded. Surgeries None recorded. Imaging MAMMO, screening, digital, bilateral 2022 023 [place] Os ([facility]) Registration/ Lab, [address] [place], [address], 3 10:02:24 MAMMO, screening, digital, bilateral 2023 024 MICHAEL [facility] ([facility]) Registration/ Lab, [address] [place], [address], 4 17:24:37 Medication Orders nystatin 100,000 unit/mL oral suspension 2019 020 [id number], [address] [place], [address], 3 14:30:05 tizanidine 4 mg tablet 2019 020 [id number], [address] [place], [address], 3 14:30:16 Bactrim DS 800 mg-160 mg tablet 2019 020 [facility], [address] [place], [address], 3 14:30:12 Vagifem 10 mcg vaginal tablet 2022 023 [facility] [employer] [id number], [address] [place], [address], 3 15:07:12 Patient TargetsNo targets recorded. Patient Instructions Encounter Date Encounter Id Patient Instructions Last Modified By Organization Details Last Modified Time 11/07/2019 [id number] candidiasis: car e instructions [email or web address] Not available 11/07/2019 16:28:50 back care and preventing injuries: care instructions [email or web address] Not available 11/07/2019 16:24:00 09/07/2022 [id number] atrophic vaginitis: care instructions Not available 09/07/2022 15:07:11 learning about breast cancer screening Not available 09/07/2022 14:56:18 09/18/2023 [id number] A healthy lifestyle: care instructions Not available 09/18/2023 11:54:10 learning about breast cancer screening Not available 09/18/2023 11:54:10 Reason for Referral None Reported. Results Created Date Observation Date Name Description Value Unit Range Abnormal Flag Note LastModifiedBy Organization Detail LastModifiedTime 02/23/2002/23/2020 fecal occul t blood , stool Occult Blood negati ve Not Available In-Office Order Internal Use Only DO Not Attach Compendium DO Not Attach Compendium, Do Not Delete/merge, [id number] 02/23/2020 14:35:28 10/27/19 20 10/24/2019 MAMMO , scree casandra, digit al, bilat eral No observ [facility]ion [facility] [address] [facility] [place], [address], 02/19/2020 17:09:18 10/28/19 21 10/27/2020 MAMMO , scree casandra, digit al, bilat eral No observ ation record ed. [email or web address] [facility] [address] [facility] [address], [place], [address], 10/27/2020 13:28:54 11/16/19 22 11/15/2021 MAMMO , scree casandra, digit al, bilat eral No observ ation record ed. [email or web address] [facility] [address] [facility] [address], [place], [address], 11/16/2021 09:44:47 12/19/19 23 12/08/2022 MAMMO , scree casandra, digit al, bilat eral No observ ation record ed. cdarrrn [facility] ([facility]) Registration/ Lab [address] [place], [address], 12/18/2022 10:03:38 01/21/20 24 01/15/2024 MAMMO , shoshanae casandra, digit al, bilat eral [facility]EL [facility] ([facility] Registration/ Lab [address] [place], [address], 01/21/2024 17:24:37 Result Notes None recorded. Problems Name Problem SNOMED Code Status Onset Date Resolution Date Notes Provider Name and Address Organization Details Recorded Time Hypertensiv e disorder 15759437 Completed 201807/15/2018 VIRY Wright [facility] 9 11:57:49 Menopause present 463850769 Active Hernando Bynum MD Attn: Taisha keita,[address] [facility], [place], [address] [place] [address] - [facility] 6 11:13:10 Problem Notes None recorded. Procedures Surgical History Date Name Laterality Status Provider Name and Address Organization Details Recorded Time 01/15/20 24 Most Recent Mammogram completed Tiara Parekh RN [facility] 01/21/2024 17:16:37 05/15/19 24 coronary artery bypass grafts x 3 completed VIRY Coulter [place] - [facility] 09/18/2023 11:47:47 02/13/20 19 Knee Surgery completed Debra Traore [place] - [facility] 04/30/2019 13:58:52 10/05/19 18 Date of Last Pap Smear completed Tiara Parekh RN [place] - [facility] 10/27/2019 11:26:00 03/19/19 05 Carpal Tunnel Surgery completed Nelda Perez [place] - [facility] 04/24/2014 14:25:42 03/19/18 96 Cholecystectomy completed Nelda Perez [place] [facility] 04/24/2014 14:25:42 Appendectomy completed VIRY Wright [place] - [facility] 07/15/2018 12:03:13 Imaging Results Imaging Date Name Status [facility] LastModified Time 10/24/2019 MAMMO, screening, digital, bilateral [facility] [address] [facility] [place], [address], 02/19/2020 17:09:18 10/27/2020 MAMMO, screening, digital, bilateral completed cdarrrn [facility] [address] [facility] [address], [place], [address], 10/27/2020 13:28:54 11/15/2021 MAMMO, screening, digital, bilateral completed cdarrrn [facility] [address] [facility] [address], [place], [address], 11/16/2021 09:44:47 12/08/2022 MAMMO, screening, digital, bilateral completed cdarrrn [facility] ([facility]) Registration/Lab [address] [place], [address], 12/18/2022 10:03:38 01/15/2024 MAMMO, screening, digital, bilateral completed MICHAEL [facility] ([facility]) Registration/Lab [address] [place], [address], 01/21/2024 17:24:37 Procedure Notes None recorded. Medical Equipment None Reported. Allergies Allergen ID Allergen Name Allergen Category Reaction Reaction Severity Criticality Documentation Date Start Date Code Code System Note Provider Name and Address Organization Details Recorded Time 028697 Cipro medicatio n other Not available Not available 10/04/201752903 3 RxNorm Thrus h Not Available Not Available Not Available Medications Name Sig Start Date Stop Date Status Note LastModified by Organization Details LastModified Time hydrochlo rothiazid e 12.5 mg tabs Take one tablet by mouth every day 11/06 completed duplicat e Not Available Not Available Not Available methylpre dnisolone dose pack 4 mg tbpk 11/06 completed Not Available Not Available Not Available omeprazol e 20 mg cpdr 11/06 completed duplicat e Not Available Not Available Not Available gabapenti n 300 mg caps 11/06 completed duplicat e Not Available Not Available Not Available hydroco/a pap tab 5-325mg 11/06 completed Not Available Not Available Not Available citalopra m hydrobrom rosie 20 mg tabs 11/06 completed duplicat e Not Available Not Available Not Available atorvasta tin 40 mg tablet active Not Available Not Available Not Available methocarb connor 500 mg tablet active Not Available Not Available No t Available nystatin 100,000 unit/mL oral suspensio n Take 5 mL 4 times a day by oral route. 09/07 completed Not Available Not Available Not Available azithromy zahra 250 mg tablet 07/15 completed Not Available Not Available Not Available aspirin 325 mg tablet Take 1 tablet twice a day by oral route. 09/07 completed Not Available Not Available Not Available tizanidin e 4 mg tablet Take 1 tablet 3 times a day by oral route as needed for 30 days. 09/07 completed Not Available Not Available Not Available fluconazo le 150 mg tablet 04/30 completed Not Available Not Available Not Available amiodaron e 200 mg tablet active Not Available Not Available Not Available hydrocodo ne 5 mg-acetam inophen 325 mg tablet Take 1 tablet 4 times a day by oral route for 10 days. 11/06 completed Not Available Not Available Not Available senna 8.6 mg tablet Take 2 tablets every day by oral route for 30 days. 09/07 completed Not Available Not Available Not Available meloxicam 15 mg tablet Take 1 tablet every day by oral route. 04/30 completed Not Available Not Available Not Available phenazopy ridine 200 mg tablet 07/15 completed Not Available Not Available Not Available ondansetr on HCl 4 mg tablet active Not Available Not Available No t Available atenolol 25 mg tablet TAKE 1 TABLET BY MOUTH EVERY DAY active Not Available Not Available No t Available metronida zole 500 mg tablet 07/15 completed Not Available Not Available Not Available acetamino phen 300 mg-codein e 30 mg tablet Take 1 tablet 3 times a day by oral route as needed for 7 days. 11/06 completed Not Available Not Available Not Available clopidogr el 75 mg tablet active Not Available Not Available Not Available chlorthal idone 25 mg tablet active Not Available Not Available No t Available amlodipin e 5 mg tablet 10/01 completed Not Available Not Available Not Available allopurin ol 100 mg tablet 10/03 completed Not Available Not Available Not Available ciproflox acin 500 mg tablet 07/15 completed Not Available Not Available Not Available sulfameth oxazole 800 mg-trimet hoprim 160 mg tablet TAKE 1 TABLET BY MOUTH TWICE A DAY FOR 10 DAYS active Not Available Not Available No t Available hydrocodo ne 10 mg-acetam inophen 325 mg tablet 04/30 completed Not Available Not Available Not Available tramadol 50 mg tablet Take 1 tablet 3 times a day by oral route for 7 days. active Not Available Not Available No t Available ciclopiro x 8 % topical solution active Not Available Not Available Not Available meloxicam 7.5 mg tablet 04/30 completed Not Available Not Available Not Available oxycodone -acetamin ophen 5 mg-325 mg tablet 11/06 completed Not Available Not Available Not Available amoxicill in 875 mg tablet 09/07 completed Not Available Not Available Not Available citalopra m 20 mg tablet TAKE 1 TABLET BY MOUTH EVERY DAY active Not Available Not Available No t Available famotidin e 20 mg tablet TAKE 1 TABLET BY MOUTH THREE (3) TIMES DAILY FOR 90 DAYS. 11/06 completed Not Available Not Available Not Available methocarb connor 750 mg tablet 11/06 completed Not Available Not Available Not Available oxycodone -acetamin ophen 10 mg-325 mg tablet 10/03 completed Not Available Not Available Not Available phenazopy ridine 100 mg tablet 09/07 completed Not Available Not Available Not Available benzonata te 100 mg capsule 07/15 completed Not Available Not Available Not Available hydrocodo ne 7.5 mg-acetam inophen 325 mg tablet 09/07 completed Not Available Not Available Not Available esomepraz ole magnesium 40 mg capsule,d elayed release active Not Available Not Available Not Available lisinopri l 10 mg tablet 10/03 completed Not Available Not Available Not Available hydrochlo rothiazid e 12.5 mg capsule Take 1 capsule every day by oral route for 30 days. 01/15 completed duplicat e Not Available Not Available Not Available nitroglyc stephen 0.4 mg sublingua l tablet active Not Available Not Available Not Available gabapenti n 300 mg capsule 09/07 completed Not Available Not Available Not Available omeprazol e 20 mg capsule,d elayed release TAKE 1 CAPSULE BY MOUTH EVERY DAY active Not Available Not Available No t Available mupirocin 2 % topical ointment APPLY TOPICALL Y TO THE AFFECTED AREA TWICE DAILY active Not Available Not Available No t Available diclofena c sodium 50 mg tablet,de layed release Take 1 tablet 3 times a day by oral route with meals for 10 days. 11/06 completed Not Available Not Available Not Available metoprolo l succinate ER 25 mg tablet,ex tended release 24 hr active Not Available Not Available Not Available nystatin 100,000 unit/gram topical powder APPLY TO THE AFFECTED AREA(S) BY TOPICAL ROUTE 2 TIMES PER DAY 09/07 completed Not Available Not Available Not Available methylpre dnisolone 4 mg tablets in a dose pack TAKE 6 TABLETS ON DAY 1 DIRECTED ON PACKAGE AND DECREASE BY 1 TAB EACH DAY FOR A TOTAL OF 6 DAYS active Not Available Not Available No t Available celecoxib 100 mg capsule TAKE 1 CAPSULE BY MOUTH TWICE A DAY active Not Available Not Available No t Available lisinopri l 2.5 mg tablet 10/03 completed Not Available Not Available Not Available atenolol 50 mg tablet 07/15 completed Not Available Not Available Not Available naproxen 500 mg tablet take 1 tablet po BID with meals prn 11/06 completed Not Available Not Available Not Available amoxicill in 875 mg-potass ium clavulana te 125 mg tablet 11/06 completed Not Available Not Available Not Available cyclobenz aprine 5 mg tablet Take 1 tablet as needed by oral route at bedtime for 30 days. 11/06 completed Not Available Not Available Not Available metoprolo l tartrate 25 mg tablet active Not Available Not Available Not Available nitrofura ntoin monohydra te/macroc rystals 100 mg capsule TAKE 1 CAPSULE BY MOUTH TWICE A DAY FOR 7 DAYS active Not Available Not Available No t Available Vesicare 5 mg tablet 10/03 completed Not Available Not Available Not Available Aspir-81 07/15 completed Not Available Not Available Not Available hydrochlo rothiazid e 12.5 mg tablet TAKE 1 TABLET BY MOUTH EVERY DAY active Not Available Not Available No t Available hylan g-f 20 48 mg/6 mL intra-art icular syringe Take 6 mL by intraart icular route. 01/15 completed Not Available Not Available Not Available Narcan 4 mg/actuat ion nasal spray 11/06 completed Not Available Not Available Not Available Yuvafem 10 mcg vaginal tablet INSERT 1 TABLET PER VAGINA EVERY OTHER DAY FOR 14 DAYS active Not Available Not Available No t Available Vitals Date Recorded Body height Body mass index (BMI) Body weight Systolic blood pressure Diastolic blood pressure Provider Name and Address Organization Details Last Updated DateTime 02/23/2020 167.64 cm 36.6 kg/m2 422721.1 1 g 144 mm[Hg] 76 mm[Hg] Tiana Barraza [facility] 0 14:32:57 Date Recorded Body weight Systolic blood pressure Diastolic blood pressure Provider Name and Address Organization Details Last Updated DateTime 04/05/2021 71190.81 g 122 mm[Hg] 70 mm[Hg] Tiana Barraza [facility] 04/05/2021 12:31:23 Date Recorded Body height Body mass index (BMI) Body weight Systolic blood pressure Diastolic blood pressure Provider Name and Address Organization Details Last Updated DateTime 09/07/2022 167.64 cm 33.9 kg/m2 73405.69 g 120 mm[Hg] 79 mm[Hg] Tiana Barraza [facility] 3 14:52:17 Date Recorded Body height Body mass index (BMI) Body weight Systolic blood pressure Diastolic blood pressure Provider Name and Address Organization Details Last Updated DateTime 09/18/2023 167.64 cm 32.5 kg/m2 91249.5 g 136 mm[Hg] 79 mm[Hg] Tiana Barraza [facility] 4 11:47:06 Social History Question Answer Notes LastModified by Organizat ion Details LastModified Time Tobacco Smoking Status Never Smoker Nelda khan [facility] 04/24/2014 14:25:42 What Is Your Level Of Alcohol Consumption? None Information not available 04/24/2014 In The 14 Days Before Symptom Onset, Have You Had Close Contact With A Laboratory-confir med COVID-19 While That Case Was Ill? No Information not available 09/07/2022 In The 14 Days Before Symptom Onset, Have You Had Close Contact With A Person Who Is Under Investigation For COVID-19 While That Person Was Ill? No Information not available 09/07/2022 Have You Been To An Area Known To Be High Risk For COVID-19? No Information not available 09/07/2022 Do You Or Have You Ever Used E-cigarettes Or Vape? Never Used Electronic Cigarettes Information not available 01/15/2019 What Was The Date Of Your Most Recent Tobacco Screening? 09/18/2023 Information not available 09/18/2023 How Many Children Do You Have? 3 Information not available 04/24/2014 Do You Or Have You Ever Used Smokeless Tobacco? Never Used Smokeless Tobacco Information not available 01/15/2019 How Much Tobacco Do You Smoke? No Information not available 01/15/2019 Has Tobacco Cessation Counseling Been Provided? No Information not available 09/07/2022 On What Date Was Tobacco Cessation Counseling Provided? 02/23/2020 Information not available 02/23/2020 How Many Years Have You Smoked Tobacco? 0 Information not available 01/15/2019 Do You Or Have You Ever Used Any Other Forms Of Tobacco Or Nicotine? No Information not available 09/07/2022 Sex: Female Functional Status None recorded. Mental Status None recorded. Family History Relationship Description Onset Age of this Age Resolved Age Notes LastModified by Organization Details LastModified Time Father Heart disease [email or web address] Not available 05/2015 11:01:39 Father Malignant tumor of unknown origin [email or web address] Not available 05/2015 11:01:39 Father Family history of malignant neoplasm bladde r, skin sebyrma Not available 07/15/2018 11:59:51 Father Kidney stone sebyrma Not availa ble 07/15/2018 12:00:18 Mother Heart disease [email or web address] Not available 05/2015 11:01:39 Mother Cerebrovascu lar accident [email or web address] Not available 07/20/2015 11:01:39 Paternal Aunt Ovarian cancer, disseminated sebyrma Not available 12:00:59 Paternal Aunt Family history of cancer of colon enoch Not available 2018 12:01:18 Sister Osteoporosis [email or web address] Not availa ble 07/15/2018 12:01:37 Daughter Leukemia [email or web address] Not availabl e 07/15/2018 12:01:54 Medical History Condition Response High Blood Pressure Y Thyroid Problems Y Kidney or Bladder Problems Y Depression Y GI Problems Y Muscle, Joint, or Bone Problems Acid Reflux (GERD) Y Urinary Tract Infection Y Allergies Y GERD/Reflux Y Gynecological History Statement/Question Response Abnormal Pap N Menses Monthly N STIs/STDs N HPV Vaccine N Date of Last Pap Smear 10/04/2017 Sexual Problems? N Current Control Method Menopause Most Recent Mammogram 01/15/2024 LMP Definite Obstetrics History GPAL:G 3 P 3 0 0 3 Type Value Multiple Births 0 Full Term 3 Induced 0 Spontaneous 0 Premature 0 Living 3 Ectopics 0 Total 3 Immunizations Vaccine Type Date Status Note Provider Nam e and Address Organization Details Recorded Time COVID-19, mRNA, LNP-S, PF, 100 mcg/0.5mL dose or 50 mcg/0.25mL dose 09/13/2020 completed VIRY Coulter, [place] - [facility] 09/07/2022 14:44:47 Past Encounters Encounter ID Performer Location Encounter Start Date Encounter Closed Date Diagnosis/Indication Diagnosis SNOMED-CT Code Diagnosis ICD10 Code Diagnosis Note [id number] [facility] [address] [place] [address] 06/29/2014 14:17:42 06/29/2014 17:33:43 Gynecologic examination 38171946 Menopause present 321963515 [id number] MD Mahesh Blanc ([facility] 205) [address] [facility] [place] [address] 07/20/2015 10:40:13 07/20/2015 11:14:25 Gynecologic examination 41647372 Z01.419 Menopause present 561224 006 N95.1 Screening for malignant neoplasm of breast 776442265 Z12.31 Screening for malignant neoplasm of colon 668251833 Z12.11 [id number] MD Mahesh Blanc ([facility] 205) [address] [facility] [place] [address] 10/03/2016 11:20:48 10/03/2016 14:11:31 Screening for malignant neoplasm of colon 416011124 Z12.11 Gynecologi c examination 89238770 Z01.419 Screening for malignant neoplasm of breast 210746325 Z12.31 Menopause present 811032 006 N95.1 [id number] MD Mahesh Blanc 14 OB [address] [facility] [place] [address] 10/04/2017 10:47:19 10/04/2017 12:58:52 Screening for malignant neoplasm of colon 623226120 Z12.11 Gynecologi c examination 19328095 Z01.133 [id number] MD Mahesh Rizzo 14 IM [address] [facility] [place] [address] 07/15/2018 11:39:40 07/16/2018 15:03:20 Arthritis 0732000 M19.90 Essential hypertension 26725485 I10 Gastroesop hageal reflux disease 744996784 K21.9 Obesity 405692196 E66.9 Sleep apnea 99991429 G47 .30 Knee joint painful on movement 632890918 M25.244 [id number] MD Mahesh Rizzo 14 IM [address] [facility] [place] [address] 10/01/2018 10:15:51 10/03/2018 16:38:03 Osteoarthritis of knee 042184879 M17.11 Essential hypertension 33520187 I10 Dermatophytosis 87659951 B35.9 Skin lesion 05821682 L98 .9 resolving insect bite at left breast [id number] MD Mahesh Blanc 14 OB [address] [facility] [place] [address] 10/18/2018 14:45:01 10/21/2018 09:30:33 Screening for malignant neoplasm of colon 652259971 Z12.11 Gynecologi c examination 68410229 Z01.419 Screening for malignant neoplasm of breast 730239909 Z12.31 [id number] MD Mahesh Rizzo 14 IM 4 [facility] [place] [address] 01/15/2019 10:07:38 01/21/2019 10:43:51 Pre-surgery evaluation 719135458 Z01.818 Adult heal th examination 732646964 Z00.00 Pt declines the influenza vaccinatio n. [id number] MD Mahesh Rizzo 14 IM [address] [facility] [place] [address] 03/05/2019 14:49:23 03/06/2019 13:55:32 History of urinary tract infection 8765711134 107 Z87.440 History of right total knee replacement 2941495072 288916 Z96.960 [id number] MD Mahesh Rizzo 14 [address] [facility] [place] [address] 04/30/2019 13:39:24 05/02/2019 15:00:31 Constipation 11572944 K59.00 Pain in coccyx 49116377 M53.3 Urinary symptoms 7247403 08 R39.9 under treatment and improved [id number] MD Mahesh Rizzo 14 [address] [facility] [place] [address] 05/16/2019 14:16:49 05/20/2019 09:47:08 Lumbago with sciatica 637601588 M54.40 [id number] MD Mahesh Rizzo 14 [address] [facility] [place] [address] 11/07/2019 14:00:11 11/10/2019 08:07:56 Infection of toe 056536717 L08.9 History of Spinal surgery 907996222 Z98.890 Low back pain 197487297 M54.5 Candidiasis of mouth 797 43521 B37.0 [id number] MD Mahesh Blanc 14 OB [address] [facility] [place] [address] 02/23/2020 14:14:30 02/24/2020 12:59:03 Screening for malignant neoplasm of colon 217037457 Z12.11 Gynecologi c examination 29025911 Z01.419 Menopause present 587764 006 N95.1 [id number] MD Mahesh Blanc 14 OB [address] [facility] [place] [address] 04/05/2021 11:48:58 04/06/2021 06:58:01 Gynecologic examination 24240481 Z01.419 Menopause present 084828 006 N95.1 [id number] MD Mahesh Blanc 14 OB [address] [facility] [place] [address] 09/07/2022 14:22:46 09/16/2022 09:40:23 Gynecologic examination 15635355 Z01.419 Screening for malignant neoplasm of breast 714578036 Z12.31 Menopause present 347150 006 N95.1 Superficia l pain on intercourse 462638778 N94.11 Atrophic vaginitis 49521 000 N95.2 [id number] MD Mahesh Blanc 14 OB [address] [facility] [address] [place] [address] 09/18/2023 11:05:21 09/19/2023 15:51:25 Obesity 237288819 E66.8 Gynecologi c examination 98137768 Z01.419 Screening for malignant neoplasm of breast [id number] Z12.31 Health Concerns Section Related Observation LastModified by Organization Detai ls LastModified Time None Recorded Concern Status LastModified by Organization Details LastModified Time None Recorded Advance Directives Directive None Recorded Payers Encounter Date Sequence Insurance Name Policy Number Policy Syed Covered Member ID Syed Member ID Guarantor Name 11/07/2019 1 [facility] (MEDICARE REPLACEMENT/A DVANTAGE - HMO) [id number] Diana Mayen [id number] Diana Mayen 02/23/2020 1 [facility] (MEDICARE REPLACEMENT/A DVANTAGE - HMO) [id number] Diana Mayen [id number] Diana Mayen 04/05/2021 1 [facility] (MEDICARE REPLACEMENT/A DVANTAGE - HMO) [id number] Diana Mayen [id number] Diana Mayen 09/07/2022 1 [facility] (MEDICARE REPLACEMENT/A DVANTAGE - HMO) [id number] Diana Mayen [id number] Diana Mayen 09/18/2023 1 [employer] (MEDICARE REPLACEMENT/A DVANTAGE - HMO) [id number] Diana Mayen [id number] Diana Mayen Notes Date Note Type Note Provider Name and Address Organization Details Recorded Time 11/07/2019 text/html Phone visit laure pierce at 3:13 p.m. As per intake note. Checo Mcclain MD Attn: [address]ing[address] [place], [address], [facility] 11/07/2019 17:51:32 02/23/2020 text/html Annual Line Therapist Post-MenopausalRep orted bypatient.Menopaus al Symptoms:no menopausal symptoms; normal vaginal lubrication Vaginal Bleeding:history of menopause having occurred; no history of post menopausal bleeding Urinary Symptoms:no hematuria; no incontinence; no nocturia; no urinary frequency Vulva:no genital lesion; no vulvar atrophy Vagina:normal vaginal discharge; no vaginal atrophy Breast:no breast lump; no nipple discharge; no breast pain Sexual Complaints:no sexual complaints Psychological Symptoms:no depression; no anxiety Hernando Bynum MD Attn: [address]ing[address] [place], [address], [facility] 02/23/2020 14:45:49 04/05/2021 text/html Annual Line Therapist Post-MenopausalRep orted bypatient.Menopaus al Symptoms:no menopausal symptoms; normal vaginal lubrication Vaginal Bleeding:history of menopause having occurred; no history of post menopausal bleeding Urinary Symptoms:no hematuria; no incontinence; no nocturia; no urinary frequency Vulva:no genital lesion; no vulvar atrophy Vagina:normal vaginal discharge; no vaginal atrophy Breast:no breast lump; no nipple discharge; no breast pain Sexual Complaints:no sexual complaints Psychological Symptoms:no depression; no anxiety HAd covid this past february Hernando Bynum MD Attn: [address]ing[address] [place], [address], [facility] 04/05/2021 12:44:11 09/07/2022 text/html Annual Line Therapist Post-MenopausalRep orted bypatient.Menopaus al Symptoms:no menopausal symptoms; normal vaginal lubrication Vaginal Bleeding:history of menopause having occurred; no history of post menopausal bleeding Urinary Symptoms:no hematuria; no incontinence; no nocturia; no urinary frequency Vulva:no genital lesion; no vulvar atrophy Vagina:normal vaginal discharge; no vaginal atrophy Breast:no breast lump; no nipple discharge; no breast pain Sexual Complaints:pain during intercourse Psychological Symptoms:no depression; no anxiety HAd covid this past february Hernando Bynum MD Attn: Accounting[address] [place], [address], [facility] 09/07/2022 15:07:24 09/18/2023 text/html Annual Line Therapist Post-MenopausalRep orted bypatient.Menopaus al Symptoms:no menopausal symptoms; normal vaginal lubrication Vaginal Bleeding:history of menopause having occurred; no history of post menopausal bleeding Urinary Symptoms:no hematuria; no incontinence; no nocturia; no urinary frequency Vulva:no genital lesion; no vulvar atrophy Vagina:normal vaginal discharge; no vaginal atrophy Breast:no breast lump; no nipple discharge; no breast pain Psychological Symptoms:no depression; no anxiety triple bypass 04/2023 She told her primary she had some chest heaviness when picking up clothes basket.stress test, cath, bypass... Hernando Bynum MD Attn: [address]ing[address] [place], [address], [facility] 09/18/2023 12:04:46 OBGyn Episode No OBEpisode recorded.
--- OUTSIDE RECORDS SUMMARY | 2024-04-22 10:13 | XMS_ITS | Encounter Summary ---
Author Organization [facility] Address [address] [place] [address] Phone Care Team Providers Care Receiving Manager Name Role Phone Jackson Rapp MD Primary Care Provider [phone] Wilbur Hernández MD Primary Care Provider [phone] rBooks Martinez MD Unavailable Gabriel Price MD Unavailable Ashvin Isbell MD Unavailable [phone] Nacho Mayo MD Unavailable Reason for Visit * Reason Comments Medication Refill Encounter Details Date Type Department Care Team (Late st Contact Info) Description 11/08/2021 Refill [facility] - Family Medicine [facility] [address] [place] [address] Wilbur Hernández MD [address] [address] Medication Refill Social History Tobacco Use Types Packs/Day Years Used Date Smoking Tobacco: Never Smokeless Tobacco: Never Alcohol Use Standard Drinks/Week Comments No 0 (1 standard drink = 0.6 oz pur e alcohol) PHQ-2 Answer Date Recorded Total Score - Questions 1-9 0 01/18 Sexually Active Control Partners Comments Not Currently Male Comments No Sex and Gender Information Value Date Recorded Sex Assigned at Not on file Legal Sex Female 7:50 PM CDT Gender Identity Not on file Sexual Orientation Not on file Occupation Industry Job Start Date Job End Date 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 documented in this encounter Plan of Treatment Upcoming Encounters Date Type Department Care Team (Late st Contact Info) Description 05/26/2024 9:30 AM CDT Office Visit [facility] - Family Medicine [facility] [address] [place] [address] Jackson Rapp MD [address] [address] 09/02/2024 10:15 AM CDT Office Visit [facility] - Pulmonology & Sleep Medicine [facility] [address] [place] [address] Gabriel Price MD [address] [place] [address] documented as of this encounter Visit Diagnoses Not on filedocumented in this encounter Additional Health Concerns Infection Onset Date Last Indicated Resolved Time ESBL 02/18/2019 02/18/2019 COVID - 19 02/28/2022 02/28/2022 03/10/2022 12:1 6 AM SCRATCHER COVID - 19 Confirmed 02/28/2022 02/28/2022 023 12:16 AM SCRATCHER Assessment Noted Time PHQ-9 Depression Total Score: 0 02/15/20 21 12:00 PM SCRATCHER documented as of this encounter Care Teams Receiving Manager Relationship Specialty Start Date End Date Jackson Rapp MD [address] [facility] [address] [place] [address] PCP - General Family Medicine 03/01/23 Wilbur Hernández MD [address] [facility] [address] [place] [address] PCP - General Family Medicine 02/28/23 02/28/23 Brooks Martinez MD [address] [facility] [address] [place] [address] Consulting Physician Colon and Rectal Surgery 03/16/23 Gabriel Price MD [address] [place] [address] Consulting Physician Pulmonary Disease 01/09/23 Ashvin Isbell MD [address] [facility] [address] [place] [address] Consulting Physician General Surgery 10/05/23 Nacho Mayo MD [address] [facility] [address] [place] [address] Consulting Physician Urology 12/12/23 documented as of this encounter
--- OUTSIDE RECORDS SUMMARY | 2024-04-22 10:13 | XMS_ITS | Encounter Summary ---
Author Organization [facility] Healthcare Address [address] [place] [address] Care Team Providers Care Ultrasonic Tester Name Role Phone Wilbur Hernández MD Primary Care Provider [phone] Jackson Rapp MD Primary Care Provider [phone] Jordan Fuentes MD Unavailable [phone] Sam Wick MD Unavailable [phone] Miscellaneous, Not In File Unavailable Unava ilable Reason for Visit * Reason Onset Date Comments Scheduling Appointments 10/26/2020 confirmi ng mammogram appt- no answer Encounter Details Date Type Department Care Team (Late st Contact Info) Description 10/26/2020 Telephone [facility] [address] [place] [address] Antonia Rosario RT Scheduling Appointments (confirming mammogram appt- no answer) Social History Tobacco Use Types Packs/Day Years Used Date Smoking Tobacco: Never Smokeless Tobacco: Never Alcohol Use Standard Drinks/Week Comments No 0 (1 standard drink = 0.6 oz pur e alcohol) Comments No Sex and Gender Information Value Date Recorded Sex Assigned at Not on file Legal Sex Female 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 Gender Identity Not on file Sexual Orientation Not on file documented as of this encounter Plan of Treatment Not on file documented as of this encounter Visit Diagnoses Not on filedocumented in this encounter Care Teams Ultrasonic Tester Relationship Specialty Start Date End Date Wilbur Hernández MD [address] [address] PCP - General 07/29/20 12/07/22 Jackson Rapp MD 2 [facility] [address] [place] [address] PCP - General Family Medicine 12/08/22 [place] [address] [facility] [address] [address] Surgeon Cardiothoracic Surgery 05/21/23 Sam Wick MD 2 [facility] [address] [place] [address] Consulting Physician Cardiology 05/21/23 Miscellaneous, Not In File 05/21/23 documented as of this encounter
--- OUTSIDE RECORDS SUMMARY | 2024-04-22 10:13 | XMS_ITS | Clinical Summary ---
Author Organization [facility] Address [address] [place] [address] Care Team Providers Care Director Of Assessing Name Role Phone Jackson Rapp MD Primary Care Provider [phone] Source Comments [facility],non[facility] Affiliates and Associated Physician Practices is amultiple site organization consisting of ambulatory clinics and hospital sitesin [place], [place], [place] and [place]. This disclosure is being madepursuant to the Care Everywhere program and may not contain all information available regarding this patient. Last updated 17.[facility] [employer] Allergies Active Allergy Reactions Criticality Noted Date Comments Ciprofloxacin Other Low 09/11/2017 Cipro causes thrush Cipro causes thrush Medications * Be aware that medications may not be up to date on this document. Alwaysverify current medications with the patient. Medication Sig Dispensed Refills Start Date End Date Status hydroCHLOROthiazide (MICROZIDE) 12.5 MG capsule Take 1 capsule by mouth every 24 hours Active citalopram (CELEXA) 20 MG tablet Take 1 tablet by mouth at bedtime 06/05/2016 Active atenolol (TENORMIN) 25 MG tablet Take 1 tablet by mouth once daily 02/02/2017 Active Multiple Vitamins-Minerals (EYE VITAMINS PO) Take by mouth once daily Active LORATADINE ALLERGY RELIEF PO Take by mouth once daily Active Other 2 times daily Oligo from Melaleuca(vitamin supplement) Active aspirin (ASPIRIN) 325 MG tablet aspirin 325 mg tablet Take 1 tablet twice a day by oral route. Active gabapentin (NEURONTIN) 300 MG capsule 02/02/2020 Active HYDROcodone-acetamin ophen (NORCO) 7.5-325 MG tablet 12/30/2019 Active NYAMYC 311996 UNIT/GM powder 02/02/2020 Active omeprazole (PRILOSEC) 20 MG capsule omeprazole 20 mg capsule,delayed release Active sennosides (SENOKOT) 8.6 MG tablet every 24 hours Active DHA-EPA-Vit P6-Q14-Bbfhk Acid (CARDIOVID PLUS) CAPS Take 1 tablet by mouth once daily Contains Fish oil Active Active Problems Problem Noted Date Diagnosed Date Essential hypertension 07/30/2019 Chronic left-sided low back pain with left-sided sciatica 07/30/2019 History of total right knee replacement 03/27/19 20 Primary osteoarthritis of right knee 11/08/2018 Hypertension due to endocrine disorder 6 Depression 11/16/2015 Family History Medical History Relation Name Comments Cancer - Bladder Father Relation Name Status Comments Father Social History Tobacco Use Types Packs/Day Years [...] 37 ??C (98.6 ??F) 02/14/2019 7:55 AM TAILOR HELPER Respiratory Rate 18 02/14/2019 7:55 AM TAILOR HELPER Oxygen Saturation 95% 02/14/2019 7:55 AM TAILOR HELPER Inhaled Oxygen Concentration - - Weight 101.2 kg (223 lb) 08/25/2020 8:21 AM CDT Height 167.6 cm (5' 6 ) 08/25/2020 8:21 AM CDT Body Mass Index 35.99 08/25/2020 8:21 AM CDT Plan of Treatment Health Maintenance Due Date Last Done Comments BONE DENSITY TESTING 1945 HEPATITIS C SCREENING 11/17/1965 DTAP/TDAP/TD VACCINES (1 - Tdap) 11/21/1966 PNEUMOCOCCAL VACCINE 50+ (1 of 1 - PCV) 11/21/1997 ZOSTER VACCINE (1 of 2) 11/21/1997 Respiratory Syncytial Virus (RSV) Vaccine Pt: or over 60 yrs (1 - 1-dose 75+ series) 11/21/2022 COVID-19 VACCINE (1 - 2023-2 5 season) 2023 INFLUENZA VACCINE (#1) 2023 DEPRESSION SCREENING 03/19/2024 MEDICARE AWV ? CALENDAR YEAR 2024 HEPATITIS B VACCINE Aged Out No longe r eligible based on patient's age to complete this topic HIB VACCINE Aged Out No longer eligi ble based on patient's age to complete this topic HPV VACCINE Aged Out No longer eligi ble based on patient's age to complete this topic MENINGOCOCCAL (Group B) VACCINE Aged Out No longer eligible based on patient's age to complete this topic MENINGOCOCCAL VACCINE Aged Out No elo kathy eligible based on patient's age to complete this topic Medical Devices Implanted Type Area Operations And Intelligence Assistant Device Identifier Shelf Expiration Date Model / Serial / Lot Cmnt Bone Djo Srg Cblt 40gm Hvisc Strl Implanted:Qty: 1 on 02/12/2019 by Meño Hirsch MD at [facility] Right: Knee [employer] 05/09/2020 600-15-000 / / [id number] Tray Tib 71mm Kn Cocr I Beam Implanted:Qty: 1 on 02/12/2019 by Meño Hirsch MD at [facility] Right: Knee [employer] 01/14/2029 [id number] / / [id number] Cmpnt Fem Kn Rt Cr Cmnt Prm Vngrd Intlk Implanted:Qty: 1 on 02/12/2019 by Meño Hirsch MD at [facility] Right: Knee [employer] 12/07/2028 [id number] / / [id number] Cmpnt Ptlr 28mm 1 Pg Wire Ascnt Arcm Kn Implanted:Qty: 1 on 02/12/2019 by Meño Hirsch MD at [facility] Right: Knee [employer] 02/01/2024 [id number] / / [id number] Vngrd Arcm Kn Ant Stab Implanted:Qty: 1 on 02/12/2019 by Meño Hirsch MD at [facility] Right: Knee [employer] 09/07/2023 [id number] / / [id number] Advance Directives * Full Code (Latest Code Status on File) Date Activated Date Inactivated Comments 02/12/2019 12:10 PM 02/14/2019 1:26 PM Care Teams Director Of Assessing Relationship Specialty Start Date End Date Jackson Rapp MD [address] [address] PCP - General Family Medicine 07/26/23
--- OUTSIDE RECORDS SUMMARY | 2024-04-22 10:13 | XMS_ITS | Referral Summary ---
Author Organization [facility] Address [address] [place] [address] Care Team Providers Care Inspector Subassembly Name Role Phone Jackson Rapp MD Primary Care Provider [phone] Source Comments [facility],non[facility] Affiliates and Associated Physician Practices is amultiple site organization consisting of ambulatory clinics and hospital sitesin [place], [place], [place] and [place]. This disclosure is being madepursuant to the Care Everywhere program and may not contain all information available regarding this patient. Last updated 17.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 No 02/14/2019 Plan of Treatment Not on file Medical Devices Implanted Type Area Crochet Machine Operator Device Identifier Shelf Expiration Date Model / Serial / Lot Cmnt Bone Djo Srg Cblt 40gm Hvisc Strl Implanted:Qty: 1 on 02/12/2019 by Meño Hirsch MD at [facility] Right: Knee [employer] 05/09/2020 600-15-000 / / [id number] Tray Tib 71mm Kn Cocr I Beam Implanted:Qty: 1 on 02/12/2019 by Meño Hirsch MD at [facility] Right: Knee [employer] 01/14/2029 [id number] / / [id number] Cmpnt Fem Kn Rt Cr Cmnt Prm Vngrd Intlk Implanted:Qty: 1 on 02/12/2019 by Meño Hirsch MD at [facility] Right: Knee [employer] 12/07/2028 [id number] / / [id number] Cmpnt Ptlr 28mm 1 Pg Wire Ascnt Arcm Kn Implanted:Qty: 1 on 02/12/2019 by Meño Hirsch MD at [facility] Right: Knee [employer] 02/01/2024 [id number] / / [id number] Vngrd Arcm Kn Ant Stab Implanted:Qty: 1 on 02/12/2019 by Meño Hirsch MD at [facility] Right: Knee [employer] 09/07/2023 [id number] / / [id number] Advance Directives * Full Code (Latest Code Status on File) Date Activated Date Inactivated Comments 02/12/2019 12:10 PM 02/14/2019 1:26 PM Care Teams Inspector Subassembly Relationship Specialty Start Date End Date Jackson Rapp MD [address] [address] PCP - General Family Medicine 07/26/23
--- OUTSIDE RECORDS SUMMARY | 2024-04-22 10:14 | XMS_ITS | Encounter Summary ---
Author Organization [facility] Address [address] [place] [address] Phone Care Team Providers Care Special Needs Librarian Name Role Phone Jackson Rapp MD Primary Care Provider [phone] Wilbur Hernández MD Primary Care Provider [phone] Brooks Martinez MD Unavailable Gabriel Price MD Unavailable Ashvin Isbell MD Unavailable [phone] Nacho Mayo MD Unavailable Reason for Visit * Reason Comments Medication Refill Encounter Details Date Type Department Care Team (Late st Contact Info) Description 04/26/2020 [facility]ill [facility] [address] [place] [address] Wilbur Hernández MD #[address] [address] Medication Refill Social History Tobacco Use Types Packs/Day Years Used Date Smoking Tobacco: Never Smokeless Tobacco: Never Alcohol Use Standard Drinks/Week Comments No 0 (1 standard drink = 0.6 oz pur e alcohol) PHQ-2 Answer Date Recorded Total Score - Questions 1-9 0 03/2019 Sexually Active Control Partners Comments Not Currently Male Comments No Sex and Gender Information Value Date Recorded Sex Assigned at Not on file Legal Sex Female 7:50 PM CDT Gender Identity Not on file Sexual Orientation Not on file Occupation Industry Job Start Date Job End Date 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 No / Unsure 03/30/2020 8:08 AM STONE GANG SAWYER documented as of this encounter Miscellaneous Notes * Telephone Encounter - Wilbur Hernández MD - 04/26/2020 2:33 PM CST Prescription approved. Please call in E GANG SAWYER * Telephone Encounter - Lucie Zavala RN - 04/26/2020 2:24 PM CST HCTZ is a new Rx for you Per nursing clinical judgement, provider to review and approve the medication(s) order(s) if appropriate. Requested Prescriptions Pending Prescriptions Disp Refills atenolol (TENORMIN) 25 MG Tablet [Pharmacy Med Name: ATENOLOL 25MG TABLET] 90 Tablet 3 Sig: TAKE 1 TABLET(S) EVERY DAY BY ORAL ROUTE FOR 90 DAYS. Cardiovascular: Beta Blockers Passed - 04/26/2020 9:35 AM Passed - Valid encounter within last 12 months Past Office Visits Recent Outpatient Visits 1 month ago Chest pain due to myocardial ischemia, unspecified ischemic chest pain type [facility] - Wilbur Plasencia MD 2 months ago Hypertension due to endocrine disorder [facility] Wilbur Barron MD 1 year ago Hypertension due to endocrine disorder [facility] Wilbur Barron MD 2 years ago Hypertension due to endocrine disorder [facility] Wilbur Barron MD 2 years ago Nail discoloration [facility] Wilbur Plasencia MD 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 Showing future appointments within next 90 days with a meds authorizing provider and meeting all other requirements Passed - Last BP in normal range BP Readings from Last 1 Encounters: 03/30/20 114/67 hydroCHLOROthiazide 12.5 MG Tablet [Pharmacy Med Name: HYDROCHLOROTHIAZIDE 12.5MG TABLET] 90 Tablet3 Sig: TAKE ONE (1) TABLET BY MOUTH EVERY DAY Cardiovascular: Diuretics Passed - 04/26/2020 9:35 AM Passed - Valid encounter within last 12 months Past Office Visits Recent Outpatient Visits 1 month ago Chest pain due to myocardial ischemia, unspecified ischemic chest pain type [facility] Wilbur Plasencia MD 2 months ago Hypertension due to endocrine disorder [facility] Wilbur Barron MD 1 year ago Hypertension due to endocrine disorder [facility] Wilbur Barron MD 2 years ago Hypertension due to endocrine disorder [facility] Wilbur Plasencia MD 2 years ago Nail discoloration [facility] [place] Junior MD 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 Showing future appointments within next 90 days with a meds authorizing provider and meeting all other requirements Passed - Last BP in normal range BP Readings from Last 1 Encounters: 03/30/20 114/67 E GANG SAWYER documented in this encounter Plan of Treatment Upcoming Encounters Date Type Department Care Team (Late st Contact Info) Description 05/26/2024 9:30 AM CDT Office Visit [facility]2 [place] [address] Jackson Rapp MD #[address] [address] 09/02/2024 10:15 AM CDT [facility] [address] [place] [address] Gabriel Price MD #2 [place] [address] documented as of this encounter Visit Diagnoses Not on filedocumented in this encounter Additional Health Concerns Infection Onset Date Last Indicated Resolved Time ESBL 02/18/2019 02/18/2019 COVID - 19 02/18/2021 02/18/2021 02/18/2021 3:50 PM STONE GANG SAWYER COVID - 19 Confirmed 02/18/2021 02/18/2021 021 12:16 AM STONE GANG SAWYER COVID - 19 02/28/2022 02/28/2022 03/10/2022 12:1 6 AM STONE GANG SAWYER COVID - 19 Confirmed 02/28/2022 02/28/2022 023 12:16 AM STONE GANG SAWYER Assessment Noted Time PHQ-9 Depression Total Score: 0 02/17/20 20 9:44 AM STONE GANG SAWYER documented as of this encounter Care Teams Special Needs Librarian Relationship Specialty Start Date End Date Jackson Rapp MD #[address] [address] PCP - General Family Medicine 03/01/23 Wilbur Hernández MD #[address] [address] PCP - General Family Medicine 02/28/23 02/28/23 Brooks Martinez MD #[address] [address] Consulting Physician Colon and Rectal Surgery 03/16/23 Gabriel Price MD #2 [place] [address] Consulting Physician Pulmonary Disease 01/09/23 Ashvin Isbell MD #[address] [phone] Consulting Physician General Surgery 10/05/23 Nacho Mayo MD #[address] [phone] Consulting Physician Urology 12/12/23 documented as of this encounter
--- OUTSIDE RECORDS SUMMARY | 2024-04-22 10:14 | XMS_ITS | Encounter Summary ---
Author Organization [facility] Address [address] [place] [address] Phone Care Team Providers Care Medical Claims Examiner Name Role Phone Jackson Rapp MD Primary Care Provider [phone] Wilbur Hernández MD Primary Care Provider [phone] Boroks Martinez MD Unavailable Gabriel Price MD Unavailable Ashvin Isbell MD Unavailable [phone] Nacho Mayo MD Unavailable Reason for Visit * Reason Comments Medication Refill Encounter Details Date Type Department Care Team (Late st Contact Info) Description 11/17/2022 Refill [facility] #[address] [place] [address] Valencia Torres MD #2 [place] [address] Medication Refill Social History Tobacco Use Types Packs/Day Years Used Date Smoking Tobacco: Never Smokeless Tobacco: Never Alcohol Use Standard Drinks/Week Comments No 0 (1 standard drink = 0.6 oz pur e alcohol) PHQ-2 Answer Date Recorded Total Score - Questions 1-9 0 /03/2022 Education Answer Date Recorded What is the highest level of school you have completed or the highest degree you have received? 12th grade 12/14/2021 Sexually Active Control Partners Comments Not Currently [...] Exposure Response Date Recorded In the last 10 days, have yo u been in contact with someone who was confirmed or suspected to have Coronavirus/COVID-19? No / Unsure 11/17/2022 10:44 AM CDT documented as of this encounter Functional Status * Question Answer Date of Assessment Author Little interest or pleasure in doing things Not at all 11/17/2022 11:00 AM CDT Quyen Hoffmann MA Feeling down, depressed, or hopeless Not at all 11/17/2022 11:00 AM CDT Marjorie Hoffmann MA * Over the past 2 weeks, how often have you been bothered by any of the following problems? Question Answer Date of Assessment Author Patient Health Questionnaire-2 Score 0 11/17/2022 11:00 AM CDT García Hoffmann MA documented as of this encounter Miscellaneous Notes * Telephone Encounter - Kristy Montiel RN - 11/17/2022 4:02 PM CDT Refill requested too soon. documented in this encounter Plan of Treatment Upcoming Encounters Date Type Department Care Team (Late st Contact Info) Description 05/26/2024 9:30 AM CDT [facility] [place] [address] [place] [address] Jackson Rapp MD [address] [address] 09/02/2024 10:15 AM CDT [facility] #2 [place] [address] Gabriel Price MD #2 [place] [address] documented as of this encounter Visit Diagnoses Not on filedocumented in this encounter Additional Health Concerns Infection Onset Date Last Indicated Resolved Time ESBL 02/18/2019 02/18/2019 Assessment Noted Time PHQ-9 Depression Total Score: 0 11/18/19 11:00 AM CDT documented as of this encounter Care Teams Medical Claims Examiner Relationship Specialty Start Date End Date Jackson Rapp MD #[address] [address] PCP - General Family Medicine 03/01/23 Wilbur Hernández MD #[address] [address] PCP - General Family Medicine 02/28/23 02/28/23 Brooks Martinez MD #[address] [address] Consulting Physician Colon and Rectal Surgery 03/16/23 Gabriel Price MD #2 [place] [address] Consulting Physician Pulmonary Disease 01/09/23 Ashvin Isbell MD #[address] [address] Consulting Physician General Surgery 10/05/23 Nacho Mayo MD #[address] [place] [address] [place] [address] Consulting Physician Urology 12/12/23 documented as of this encounter
--- OUTSIDE RECORDS SUMMARY | 2024-04-22 10:14 | XMS_ITS | Encounter Summary ---
Author Organization [facility] Address [address] [place] [place] [address] Phone Care Team Providers Care Selling Manager Name Role Phone Jackson Rapp MD Primary Care Provider [phone] Brooks Martinez MD Unavailable Gabriel Price MD Unavailable Ashvin Isbell MD Unavailable [phone] Nacho Mayo MD Unavailable Reason for Visit * Reason Comments Medication Refill Encounter Details Date Type Department Care Team (Late st Contact Info) Description 04/08/2023 Refill [facility] - Family Medicine [facility] [address] [place] [address] Wilbur Hernández MD [address] [address] Medication Refill Social History Tobacco Use Types Packs/Day Years Used Date Smoking Tobacco: Never Smokeless Tobacco: Never Alcohol Use Standard Drinks/Week Comments No 0 (1 standard drink = 0.6 oz pur e alcohol) PHQ-2 Answer Date Recorded Total Score - Questions 1-9 0 03/2022 Education Answer Date Recorded What is the [...] Job Start Date Job End Date 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 Atenolol Dispensed Days Supply Quantity Provider Pharmacy ATENOLOL 25MG TAB 03/30/2023 90 90 Tablet Wilbur Hernández MD [id number] ... ATENOLOL 25 MG TABLET 01/06/2023 90 90 Each Wilbur Hernández MD [id number]... Citalopram Hydrobromide Dispensed Days Supply Quantity Provider Pharmacy CITALOPRAM 20MG TAB 03/31/2023 90 90 Tablet Jackson Rapp MD [id number] ... CITALOPRAM HBR 20 MG TABLET 01/06/2023 90 90 Each Wilbur Hernández MD [id number]... Omeprazole Dispensed Days Supply Quantity Provider Pharmacy OMEPRAZOL RX 20MG CAP 03/31/2023 90 90 Capsule Jackson Rapp MD [id number] ... OMEPRAZOLE DR 20 MG CAPSULE 01/06/2023 90 90 Each Wilbur Hernández MD [id number]... NCIAL WRITER documented in this encounter Plan of Treatment Upcoming Encounters Date Type Department Care Team (Late st Contact Info) Description 05/26/2024 9:30 AM CDT [facility] Visit [facility] - [place] #2 [place] [address] Jackson Rapp MD [address] [address] 09/02/2024 10:15 AM CDT Office Visit [facility] - Pulmonology & Sleep Medicine [facility] #[address] [place] [address] Gabriel Price MD #[address] [place] [address] documented as of this encounter Visit Diagnoses Not on filedocumented in this encounter Additional Health Concerns Infection Onset Date Last Indicated Resolved Time ESBL 02/18/2019 02/18/2019 Assessment Noted Time PHQ-9 Depression Total Score: 0 11/18/19 11:00 AM CDT documented as of this encounter Care Teams Selling Manager Relationship Specialty Start Date End Date Jackson Rapp MD #2 [facility] [address] [place] [address] PCP - General Family Medicine 03/01/23 Brooks Martinez MD #2 [facility] [address] [place] [address] Consulting Physician Colon and Rectal Surgery 03/16/23 Gabriel Price MD #[address] [place] [address] Consulting Physician Pulmonary Disease 01/09/23 Ashvin Isbell MD #2 [facility] [address] [place] [address] Consulting Physician General Surgery 10/05/23 Nacho Mayo MD [facility]2 [facility] [address] [place] [phone] Consulting Physician Urology 12/12/23 documented as of this encounter
--- OUTSIDE RECORDS SUMMARY | 2024-04-22 10:14 | XMS_ITS | Encounter Summary ---
Author Organization [facility] Address [address] [place] [address] Phone Care Team Providers Care Compounder Helper Name Role Phone Jackson Rapp MD Primary Care Provider [phone] Wilbur Hernández MD Primary Care Provider [phone] Brooks Martinez MD Unavailable Gabriel Price MD Unavailable Ashvin Isbell MD Unavailable [phone] Nacho Mayo MD Unavailable Reason for Visit * Reason Comments Medication Refill Encounter Details Date Type Department Care Team (Late st Contact Info) Description 03/06/2022 Refill [facility] #[address] [address] Wilbur Hernández MD #[address] [address] Medication Refill Social History Tobacco Use Types Packs/Day Years Used Date Smoking Tobacco: Never Smokeless Tobacco: Never Alcohol Use Standard Drinks/Week Comments No 0 (1 standard drink = 0.6 oz pur e alcohol) PHQ-2 Answer Date Recorded Total Score - Questions 1-9 0 01/18 Education Answer Date Recorded What is the [...] Job Start Date Job End Date 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 No / Unsure 02/28/2022 10:14 AM LICENSED PHYSICAL THERAPIST documented as of this encounter Plan of Treatment Upcoming Encounters Date Type Department Care Team (Late st Contact Info) Description 05/26/2024 9:30 AM CDT Office Visit [facility] - Family Medicine [facility] #2 [place] [address] Jackson Rapp MD #[address] [address] 09/02/2024 10:15 AM CDT Office Visit [facility] - Pulmonology & Sleep Medicine [facility] #2 [place] [address] Gabriel Price MD #2 [place] [address] documented as of this encounter Visit Diagnoses Not on filedocumented in this encounter Additional Health Concerns Infection Onset Date Last Indicated Resolved Time ESBL 02/18/2019 02/18/2019 COVID - 19 02/28/2022 02/28/2022 03/10/2022 12:1 6 AM LICENSED PHYSICAL THERAPIST COVID - 19 Confirmed 02/28/2022 02/28/2022 023 12:16 AM LICENSED PHYSICAL THERAPIST Assessment Noted Time PHQ-9 Depression Total Score: 0 02/15/20 21 12:00 PM LICENSED PHYSICAL THERAPIST documented as of this encounter Care Teams Compounder Helper Relationship Specialty Start Date End Date Jackson Rapp MD #[address] [facility] [address] [place] [address] PCP - General Family Medicine 03/01/23 Wilbur Hernández MD #[address] [facility] [address] [place] [address] PCP - General Family Medicine 02/28/23 02/28/23 Brooks Martinez MD #[address] [facility] [address] [place] [address] Consulting Physician Colon and Rectal Surgery 03/16/23 Gabriel Price MD #[address] [place] [address] Consulting Physician Pulmonary Disease 01/09/23 Ashvin Isbell MD #[address] [facility] [address] [place] [address] Consulting Physician General Surgery 10/05/23 Nacho Mayo MD #2 [facility] [address] [place] [address] Consulting Physician Urology 12/12/23 documented as of this encounter
--- OUTSIDE RECORDS SUMMARY | 2024-04-22 10:14 | XMS_ITS | Clinical Summary ---
Author Organization [facility] Address [address] [place] [address] Phone Care Team Providers Care Body Design Checker Name Role Phone Jackson aRpp MD Primary Care Provider [phone] Brooks Martinez MD Unavailable Gabriel Price MD Unavailable Ashvin Isbell MD Unavailable [phone] Nacho Mayo MD Unavailable Allergies Active Allergy Reactions Criticality Noted Date Comments Ciprofloxacin Other (see Comments) 09/11/2017 Cipro causes thrush Medications Multiple Vitamins-Mine rals (MULTIVITAMIN PO) Take by mouth. Activ e Probiotic Product (PROBIOTIC ADVANCED PO) Take by mouth. Ac tive loratadine (CLARITIN) 10 MG Tablet Take 10 mg by mouth daily. Active methocarbamol (ROBAXIN) 500 MG Tablet 05/21/19 24 Active traMADol (ULTRAM) 50 MG Tablet Take 50 mg by mouth every 8 hours as needed. 05/28/19 24 Active atorvastatin (LIPITOR) 40 MG Tablet Take 40 mg by mouth daily. 07/23/19 24 Active clopidogrel (PLAVIX) 75 MG Tablet Take 75 mg by mouth. 07/23/19 24 025 Active metoprolol Succinate (TOPROL-XL) 25 MG TABLET SR 24 HR Take 25 mg by mouth daily. 07/02/19 24 025 Active chlorthalidon e (HYGROTON) 25 MG Tablet Take 12.5 mg by mouth. 08/21/19 24 Active alendronate (FOSAMAX) 70 MG Tablet Take 1 Tablet by mouth every 7 days. 12 Tablet 3 09/26/19 24 Active ondansetron (Zofran) 4 MG Tablet Take 1 Tablet by mouth every 8 hours as needed for Nausea - 1st line. 15 Tablet 11/14/19 24 Active Additional Information Patient not taking.Reported on 03/04/2024 senna 8.6 MG Tablet Take 1 Tablet by mouth daily as needed for Constipation - 1st line. 90 Tablet 1 04/03/19 25 Active esomeprazole (NexIUM) 40 MG CAPSULE DELAYED RELEASE Take 1 Capsule by mouth daily. 90 Capsule 04/10/19 25 Active citalopram (CeleXA) 20 MG Tablet TAKE 1 TABLET BY MOUTH DAILY. 90 Tablet 1 04/12/19 25 Active aspirin EC 81 MG Tablet Delayed Response Take 81 mg by mouth daily. 025 Discontinued(D iscontinued by another clinician) citalopram (CeleXA) 20 MG Tablet Take 1 Tablet by mouth daily. 90 Tablet 1 03/30/19 24 025 Discontinued esomeprazole (NexIUM) 40 MG CAPSULE DELAYED RELEASE Take 1 Capsule by mouth every morning (before breakfast). 90 Capsule 3 05/28/19 24 025 Discontinued(R eorder) senna 8.6 MG Tablet Take 1 Tablet by mouth daily as needed for Constipation - 1st line. 90 Tablet 3 07/14/19 24 025 Discontinued(R eorder) ergocalcifero l (VITAMIN D) 49197 UNIT CapsuleIndica tions:Vitamin D deficiency Take 1 Capsule by mouth once a week for 12 doses. 12 Capsule 01/22/20 24 025 esomeprazole (NexIUM) 40 MG CAPSULE DELAYED RELEASE Take 1 Capsule by mouth 2 times daily (before meals). 180 Capsule 04/03/19 25 025 Discontinued(R eorder) Active Problems Problem Noted Date Diagnosed Date Frequent UTI 01/17/2024 Constipation 01/17/2024 Hepatic steatosis 10/13/2023 Abnormal liver ultrasound 10/13/2023 Osteoporosis without current pathological fractu re 09/26/2023 Trigger finger of right thumb 09/26/2023 Vitamin D deficiency 09/26/2023 Esophageal thickening 06/07/2023 Seasonal allergies 06/07/2023 History of heart bypass surgery 06/07/2023 History of colon polyps 03/01/2023 Acquired deformity of right toe 03/01/2023 Toenail deformity 03/01/2023 Postmenopausal 03/01/2023 Hyperlipidemia 03/01/2023 Hyperglycemia 03/01/2023 Elevated LFTs 03/01/2023 Abnormal EKG 03/01/2023 Abnormal cardiovascular stress test 03/01/2023 Chest pain 03/01/2023 Bladder infection 03/01/2023 Kidney stone 01/28/2023 Right flank pain 11/17/2022 Skin lesion of chest wall 11/17/2022 Subungual hematoma of great toe of left foot 05/2017 Idiopathic neuropathy 09/18/2017 Nail discoloration 08/22/2017 Urge incontinence of urine 05/31/2017 Screening for colon cancer 05/31/2017 Pain in joint of right knee 12/04/2016 Non morbid obesity due to excess calories 2016 Hypertension due to endocrine disorder 6 Depression 11/16/2015 Cold thyroid nodule 08/17/2015 VALENTINA (obstructive sleep apnea) 08/17/2015 Multinodular goiter (nontoxic) 07/29/2015 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 PLMD (periodic limb movement disorder) 6 PNAR (perennial non-allergic rhinitis) 6 Hypertension Encounters Date Type Department Care Team Description 04/21/2024 Refill [facility] [address] [place] [address] Jackson Rapp MD Medication Refill 04/12/2024 MyChart RX Renewal [facility] [address] [place] [address] Jackson Rapp MD Medication Renewal Declined 04/12/2024 Refill [facility] [address] [place] [address] Jackson Rapp MD Medication Refill 04/08/2024 Telephone [facility] [address] [place] [address] Jackson Rapp MD Prior Authorization 03/28/2024 MyChart RX Renewal [facility] [address] [place] [address] Jackson Rapp MD Medication Renewal Request 03/28/2024 Refill [facility] [address] [place] [address] Jackson Rapp MD Medication Refill 03/04/2024 10:15 AM WELDING MACHINE OPERATOR SUBMERGED ARC Office Visit [facility] - Pulmonology & Sleep Medicine [facility] [address] [place] [address] Gabriel Price MD VALENTINA (obstructive sleep apnea) (Primary Dx); Non morbid obesity due to excess calories; Primary hypertension; PLMD (periodic limb movement disorder) Discharge Disposition: Discharged to home or Selfcare 03/04/2024 Travel 03/03/2024 Travel 01/31/2024 Refill [facility] [address] [place] [address] Jackson Rapp MD Medication Refill 01/22/2024 Telephone [facility] [address] [place] [address] Jackson Rapp MD Results 01/22/2024 Refill [facility] [address] [place] [address] Jackson Rapp MD Medication Refill 01/22/2024 Telephone [facility] - Family Medicine [facility] [address] [place] [address] Jackson Rapp MD Results from Last 3 Months Immunizations Immunization Administration Dates Next Due Covid-19, Mrna, Lnp-s, PF, 1 00 mcg/0.5 mL Dose (Moderna) 09/13/2020 Family History Medical History Relation Name Comments Stroke Brother 1 Diabetes Brother 2 Leukemia/Lymphoma Daughter 1 leukemia No Known Problems Daughter 2 No Known Problems Daughter 3 Bladder cancer Father Cancer Father bladder and ski n cancer Kidney Stones Father Other-comment Mother PNUEMONIA Stroke Mother 2 mini strokes Colon Cancer Paternal Aunt Ovarian Cancer Paternal Aunt Osteoporosis Sister 1 Yaima No Known Problems Sister 2 Relation Name Status Comments Brother 1 Brother 2 Alive Daughter 1 Daughter 2 Alive Daughter 3 Alive Father Mother Paternal Aunt Sister 1 Yaima Alive Sister 2 Alive Social History Tobacco Use Types Packs/Day Years Used Date Smoking Tobacco: Never Smokeless Tobacco: Never Tobacco Cessation:Counseling Given: No Alcohol Use Standard Drinks/Week Comments Never 0 (1 standard drink = 0.6 oz pur e alcohol) [facility] Utilities Answer Date Recorded In the past 12 months has [employer] electric, gas, oil, or water company threatened to shut off services in your home? No 06/07/2023 Social Connection and Isolat ion Panel [NHANES] Answer Date Recorded In a typical week, how many times do you talk on the phone with family, friends, or neighbors? More than three times a week 06/07/2023 Frequency of Social Gatherin gs with Friends and Family Not on file 06/07/2023 Attends Restorationism Services Not on file 06/06 Active Member of Clubs or Organizations Not on f ile 06/07/2023 Attends Club or Organization Meetings Not on estella e 06/07/2023 Marital Status Not on file 06/07/2023 AUDIT-C Answer Date Recorded Q1: How often do you have a drink containing alc ohol? Never 06/07/2023 Average Number of Drinks Not on file 024 Frequency of Binge Drinking Not on file 05/18 Overall Financial Resource Strain (CARDIA) Answe r Date Recorded How hard is it for you to pa y for the very basics like food, housing, medical care, and heating? Not hard at all 06/07/2023 PHQ-2 Answer Date Recorded Total Score - Questions 1-9 0 12/19 [facility] - Occupational Stress Questionnaire Answer Date Recorded Do you feel stress - tense, restless, nervous, or anxious, or unable to sleep at night because your mind is troubled all the time - these days? Only a little 06/07/2023 Exercise Vital Sign Answer Date Recorde d On average, how many days pe r week do you engage in moderate to strenuous exercise (like a brisk walk)? 0 days 06/07/2023 On average, how many minutes do you engage in exercise at this level? 0 min 06/07/2023 Hunger Vital Sign Answer Date Recorded Within the past 12 months, y ou worried that your food would run out before you got the money to buy more. Never true 06/07/19 24 Within the past 12 months, t he food you bought just didn't last and you didn't have money to get more. Never true 06/07/2023 PRAPARE - Transportation Answer Date Re corded In the past 12 months, has l ack of transportation kept you from medical appointments or from getting medications? No 05/18 In the past 12 months, has l ack of transportation kept you from meetings, work, or from getting things needed for daily living? No 06/07/2023 Housing Stability Vital Sign Answer Ron e Recorded In the last 12 months, was t here a time when you were not able to pay the mortgage or rent on time? No 06/07/2023 In the last 12 months, how many places have you lived? 1 06/07/2023 In the last 12 months, was t here a time when you did not have a steady place to sleep or slept in a halfway (including now)? 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 on file Not on file Not on file Last Filed Vital Signs Vital Sign Reading Time Taken Comments Blood Pressure 124/72 03/04/2024 10:26 AM WELDING MACHINE OPERATOR [employer]BMER[employer] Pulse 64 03/04/2024 10:26 AM WELDING MACHINE OPERATOR [employer]BMER[employer] ARC Temperature 36.3 ??C (97.3 ??F) 03/04/2024 1 0:26 AM WELDING MACHINE OPERATOR [employer]BMER[employer] ARC Respiratory Rate 14 03/04/2024 10:2 6 AM WELDING MACHINE OPERATOR SUBMER[employer] ARC Oxygen Saturation 96% 03/04/2024 10: 26 AM WELDING MACHINE OPERATOR [employer]BMER[employer] ARC Inhaled Oxygen Concentration - - Weight 101.5 kg (223 lb 11.2 oz) 2023 10:26 AM WELDING MACHINE OPERATOR SUBMER[employer] Height 167.6 cm (5' 6 ) 03/04/2024 10:2 6 AM WELDING MACHINE OPERATOR SUBMER[employer]ED ARC Body Mass Index 36.11 03/04/2024 10:26 AM WELDING MACHINE OPERATOR SUBMER[employer]ED ARC Plan of Treatment Upcoming Encounters Date Type Department Care Team (Late st Contact Info) Description 05/26/2024 9:30 AM CDT [facility] [address] [place] [address] Jackson Rapp MD [address] [address] 09/02/2024 10:15 AM CDT Office Visit [facility] - Pulmonology & Sleep Medicine [facility] [address] [place] [address] Gabriel Price MD [address] [place] [address] Health Maintenance Due Date Last Done Comments Cologuard 1945 TdaP Immunization 1945 Pneumococcal Immunization (50+ years) (1 of 2 - PCV) 11/21/1966 Zoster Immunization (1 of 2) 11/21/1997 Immunochemical Fecal Occult Blood 08/06/2018 08/06/2017 Respiratory Syncytial Virus (RSV) Immunization (Adult) (1 - 1-dose 75+ series) 11/21/2022 Influenza Immunization (#1) 2023 SARS-COV-2 Immunization ( season) 2023 09/13/2020 DEXA Bone Density 05/02/2025 05/02/2023 Colonoscopy 12/27/2026 12/28/2023, 12/17, 11/05/2017, Additional history exists Colorectal Cancer Screening 12/27/2026 Colonoscopy High Risk 12/27/2033 12/28/2023 , 11/05/2017, 01/31/2013 Hepatitis C Virus (HCV) Screening Completed 03/01/2023 Mammogram Discontinued 01/15/2024, 12/18, 12/08/2022, Additional history exists Hepatitis B Immunization Aged Out No longer eligible based on patient's age to complete this topic Meningococcal Immunization (ACWY) Aged Out No longer eligible based on patient's age to complete this topic Rotavirus Immunization Aged Out No lo nger eligible based on patient's age to complete this topic Procedures Procedure Name Priority Date/Time Associated Diagnosis Comments [facility] SCREENING BILATERAL DIGITAL W CAD W LEEANNA Routine 01/15/2024 12:00 AM CDT Encounter for screening mammogram for malignant neoplasm of breast [facility] BONE DENSITOMETRY AXIAL SKELETON Routine 05/02/2023 10:30 AM WELDING MACHINE OPERATOR SUBMERGED ARC Postmenopausal HEPATITIS PANEL ACUTE (AHP) Routine 03/01/2023 12:36 PM WELDING MACHINE OPERATOR SUBMERGED ARC Elevated LFTs STOOL, OCCULT BLOOD, DIAGNOSTIC, VIA GUAIAC STAT 08/06/2017 9:35 AM CDT COLONOSCOPY Routine 01/31/2013 from Last 3 Months or Most Recently Relevant to Health Maintenance Results * [facility] SCREENING BILATERAL DIGITAL W CAD W LEEANNA (01/15/2024 12:00 AM CDT) Anatomical Region Laterality Modality breast Bilateral Mammography 01/15/2024 us Aniket Shah MD IMG MAMMO ORDERABLES F inal Result * [facility] BONE DENSITOMETRY AXIAL SKELETON (05/02/2023 10:30 AM WELDING MACHINE OPERATOR SUBMERGED ARC) Anatomical Region Laterality Modality BODY N/A Computed Radiogr aphy 05/02/2023 5:47 PM WELDING MACHINE OPERATOR SUBMERGED ARC Impressions 05/02/2023 5:49 PM WELDING MACHINE OPERATOR SUBMERGED ARC IMPRESSION: Osteoporosis. REFERENCE: Bone mineral density: ? Normal (T-score above or = -1.0) ? Low bone mass ??(T-score between -1.0 and -2.5) replaces the previously used term osteopenia ? Osteoporosis (T-score = or below -2.5) Please see below follow up recommendations. Medical evaluation for secondary causes of low bone mineral density may be appropriate. FRAX is a World Health Organization validated fracture risk assessment tool that calculates a person's 10 year probability of a major osteoporosis related fracture and hip fracture. ??According to the National Osteoporosis Foundation guidelines, postmenopausal women and men age 50 or older with low bone mass and a 10 year probability of a major osteoporosis related fracture = or greater than 20% or a 10 year probability of a hip fracture = or greater than 3% should be considered for pharmacological treatment for the prevention of osteoporosis. For further information, including treatment recommendations, please refer to the 2019 ISCD Official Positions (http://www.iscd.org) and the NOF's Clinician's Guide to Prevention and Treatment of Osteoporosis (http://www.nof.org/professionals/clinical-guidelines) Narrative 05/02/2023 5:49 PM WELDING MACHINE OPERATOR SUBMERGED ARC EXAM DESCRIPTION: [facility] BONE DENSITOMETRY AXIAL SKELETON REASON FOR STUDY: 77 y/o ?? year old ??F ??with given history of: ?? postmenopause ? 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 Maximum height: ??66 ??inches ? Weight: ??212 ??pounds Risk factors: ??Postmenopausal, adult fracture COMPARISON: None available FINDINGS: AP LUMBAR SPINE L1-L4: Total BMD is 0.980 g/cm2 T-score is -1.7 LEFT HIP: Total BMD is 0.896 g/cm2 T-score is -0.9 This is a decrease in comparison to prior exam, which is statistically significant. Femoral neck BMD is 0.632 g/cm2 T-score is -2.9 ?? FRAX: FRAX not reported due to T-scores of hip, femoral neck and/or spine being at or below -2.5 (Osteoporosis). THIS IS AN ELECTRONICALLY VERIFIED FINAL REPORT 05/02/2023 5:47 PM - Electronically signed by ??Wilbur Emmanuel M.D. 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 Femoral neck BMD is 0.632 g/cm2 T-score is -2.9 FRAX: FRAX not reported due to T-scores of hip, femoral neck and/or spine being at or below -2.5 (Osteoporosis). THIS IS AN ELECTRONICALLY VERIFIED FINAL REPORT 05/02/2023 5:47 PM - Electronically signed by Wilbur Emmanuel M.D. MF: RONDA Report ID: [id number] Reading Location: [place] [address] IMPRESSION: Osteoporosis. REFERENCE: Bone mineral density: Normal (T-score above or = -1.0) Low bone mass (T-score between -1.0 and -2.5) replaces the previously used term osteopenia Osteoporosis (T-score = or below -2.5) Please see below follow up recommendations. Medical evaluation for secondary causes of low bone mineral density may be appropriate. FRAX is a World Health Organization validated fracture risk assessment tool that calculates a person's 10 year probability of a major osteoporosis related fracture and hip fracture. According to the National Osteoporosis Foundation guidelines, postmenopausal women and men age 50 or older with low bone mass and a 10 year probability of a major osteoporosis related fracture = or greater than 20% or a 10 year probability of a hip fracture = or greater than 3% should be considered for pharmacological treatment for the prevention of osteoporosis. For further information, including treatment recommendations, please refer to the 2019 ISCD Official Positions (http://www.iscd.org) and the NOF's Clinician's Guide to Prevention and Treatment of Osteoporosis (http://www.nof.org/professionals/clinical-guidelines) us Jackson Rapp MD IMG DEXA ORDERABLES Final R esult * HEPATITIS PANEL ACUTE (AHP) (03/01/2023 12:36 PM WELDING MACHINE OPERATOR SUBMERGED ARC) HEPATITIS A IGM ANTIBODY NON DETECTED NON DETECTED [place] [id number] B 03/02/2023 1:24 AM [facility] Comment: IGM Antibodies to HAV not detected. ??Does not exclude early acute or recovered HAV infection. HEP B CORE AB (IGM) NON DETECTED NON DETECTED [place] [id number] B 03/02/2023 1:24 AM [facility] Comment:IGM anti-HBC not det ected. Does not exclude the possibility of exposure to or infection with HBV. HEPATITIS B SURFACE ANTIGEN NON DETECTED NON DETECTED [place] [id number] B 03/02/2023 1:24 AM [facility] Comment:A nonreactive test r esult does not exclude the possibility of exposure to or infection with Hepatitis B virus. A nonreactive test result in individuals with prior exposure to hepatitis B may be due to antigen levels below the detection limit of this assay or lack of antigen reactivity to the antibodies in this assay. hepatitis C antibody 0.12 <1 S/CO [facility] ARCH [id number] B 03/02/2023 1:24 AM [facility] Comment: Signal/Cutoff ratio ??< 0.79 is Nondetected Signal/Cutoff ratio 0.80-0.99 is Grayzone Signal/Cutoff ratio > 0.99 is Detected Supplemental assays are recommended if signal/cutoff ratio is >/=1.00. ??Signal/cutoff ratio result >/= 5.00 is 97% predictive of positivity for recombinant immunoblot assay (RIBA) and will be reported to the [place] [facility] as required. Blood Venipuncture / Unknown 03/01/2023 12:36 PM WELDING MACHINE OPERATOR SUBMERGED ARC 03/01/2023 12:36 PM WELDING MACHINE OPERATOR SUBMERGED ARC Jackson Rapp MD HEMATOLOGY ORDERABLES Final Result [facility] [address] [place] [address], * (ABNORMAL) Stool, Occult Blood, Diagnostic (08/06/2017 9:35 AM CDT) OCCULT BLOOD DIAG, GI BLEED Positive(A ) Negative 08/06/2017 9:57 AM CDT [facility] Stool specimen (specimen) STOOL SPECIMEN / Unknown Non-Phlebotomy Collection / Unknown 08/06/2017 9:35 AM CDT 08/06/2017 9:44 AM CDT Hermann Meza MD BODY FLUIDS & STOOLS ORDERA BLES Final Result [facility] [address] [place] [address] * COLONOSCOPY (01/31/2013) Ady Thorne Jr., MD PROCEDURE/M INOR SURGICAL ORDERABLES Edited Result - Final from Last 3 Months or Most Recently Relevant to Health Maintenance Additional Health Concerns Infection Onset Date Last Indicated ESBL 02/18/2019 02/18/2019 [place] [address] MEDICARE C AETNA Care Teams Body Design Checker Relationship Specialty Start Date End Date Jackson Rapp MD [address] [facility] [address] [place] [address] PCP - General Family Medicine 03/01/23 Brooks Martinez MD [address] [address] [place], [place] [id number] Consulting Physician Colon and Rectal Surgery 03/16/23 Gabriel Price MD [address] [place] [address] Consulting Physician Pulmonary Disease 01/09/23 Ashvin Isbell MD #2 [facility] [address] [place] [id number] Consulting Physician General Surgery 10/05/23 Nacho Mayo MD [address] [facility] [address] [place] [address] Consulting Physician Urology 12/12/23
--- OUTSIDE RECORDS SUMMARY | 2024-04-22 10:14 | XMS_ITS | Encounter Summary ---
Author Organization [facility] Address [address] [place] [address] Phone Care Team Providers Care Product Assurance Engineer Name Role Phone Jackson Rapp MD Primary Care Provider [phone] Brooks Martinez MD Unavailable Gabriel Price MD Unavailable Ashvin Isbell MD Unavailable [phone] Nacho Mayo MD Unavailable Reason for Visit * Reason Comments Medication Refill Encounter Details Date Type Department Care Team (Late st Contact Info) Description 04/21/2024 Refill [facility] - Family Medicine [facility] [address] [place] [address] Jackson Rapp MD #[address] [address] Medication Refill Social History Tobacco Use Types Packs/Day Years Used Date Smoking Tobacco: Never Smokeless Tobacco: Never Alcohol Use Standard Drinks/Week Comments Never 0 (1 standard drink = 0.6 oz pur e alcohol) [facility] Utilities Answer Date Recorded In the past 12 months has e electric, gas, oil, or water company [...] and Family Not on file 06/07/2023 Attends Restorationist Services Not on file 06/06 Active Member [...] Total Score - Questions 1-9 0 12/19 [facility] Occupat ional Health - Occupational Stress Questionnaire Answer Date Recorded [...] place to sleep or slept in a correction (including now)? 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 on file Not on file Not on file documented as of this encounter Miscellaneous Notes * Telephone Encounter - Lucie Zavala RN - 04/21/2024 2:51 PM CST Needs lab work to recheck Vitamin D level - outstanding order in chart METAL CHARGER documented in this encounter Plan of Treatment Upcoming Encounters Date Type Department Care Team (Late st Contact Info) Description 05/26/2024 9:30 AM CDT Office Visit [facility] - Family Medicine - [place] [address] [place] [address] Jackson Rapp MD #[address] [address] 09/02/2024 10:15 AM CDT Office Visit [facility] - [facility]monology & Sleep Medicine - [place] [address] [place] [address] Gabriel Price MD #2 [place] [address] documented as of this encounter Visit Diagnoses Diagnosis Vitamin D deficiency Unspecified vitamin D deficiency documented in this encounter Additional Health Concerns Infection Onset Date Last Indicated Resolved Time ESBL 02/18/2019 02/18/2019 Assessment Noted Time PHQ-9 Depression Total Score: 0 01/17/20 9:13 AM CDT documented as of this encounter Care Teams Product Assurance Engineer Relationship Specialty Start Date End Date Jackson Rapp MD #2 [facility] [address] [place] [address] PCP - General Family Medicine 03/01/23 Brooks Martinez MD #2 [facility] [address] [place] [address] Consulting Physician Colon and Rectal Surgery 03/16/23 Gabriel Price MD [facility]2 [facility] [place] [address] Consulting Physician Pulmonary Disease 01/09/23 Ashvin Isbell MD #2 [facility] [address] [place] [address] Consulting Physician General Surgery 10/05/23 Nacho Mayo MD #2 [facility] [address] [place] [address] Consulting Physician Urology 12/12/23 documented as of this encounter
--- OUTSIDE RECORDS SUMMARY | 2024-04-22 10:14 | XMS_ITS | Encounter Summary ---
Author Organization [facility] Address [address] [place] [address] Phone Care Team Providers Care Bridge Painter Name Role Phone Jackson Rapp MD Primary Care Provider [phone] Brooks Martinez MD Unavailable Gabriel Price MD Unavailable Ashvin Isbell MD Unavailable [phone] Nacho Mayo MD Unavailable Reason for Visit * Reason Comments Medication Refill Encounter Details Date Type Department Care Team (Late st Contact Info) Description 12/18/2023 Refill [facility] - Family Medicine [facility] [address] [place] [address] Jackson Rapp MD #[address] [address] Medication Refill Social History Tobacco Use Types Packs/Day Years Used Date Smoking Tobacco: Never Smokeless Tobacco: Never Alcohol Use Standard Drinks/Week Comments Never 0 (1 standard drink = 0.6 oz pur e alcohol) [facility] Utilities Answer Date Recorded In the [...] Recorded Total Score - Questions 1-9 0 09/16 [facility] of Occupat ional Health - Occupational Stress [...] place to sleep or slept in a mcc (including now)? 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 Not on file Not on file documented as of this encounter Miscellaneous Notes * Telephone Encounter - Lucie Zavala RN - 12/19/2023 8:50 AM CDT Needs lab work prior to refill - lab due 12/31/23 documented in this encounter Plan of Treatment Upcoming Encounters Date Type Department Care Team (Late st Contact Info) Description 05/26/2024 9:30 AM CDT Office Visit [facility] - Family Medicine - [place] [address] [place] [address] Jackson Rapp MD #[address] [address] 09/02/2024 10:15 AM CDT Office Visit [facility] - Pulmonology & Sleep Medicine [facility] [address] [place] [id number] Gabriel Price MD #2 [facility] [place] [address] documented as of this encounter Visit Diagnoses Not on filedocumented in this encounter Additional Health Concerns Infection Onset Date Last Indicated Resolved Time ESBL 02/18/2019 02/18/2019 Assessment Noted Time PHQ-9 Depression Total Score: 0 09/26/19 9:27 AM CDT documented as of this encounter Care Teams Bridge Painter Relationship Specialty Start Date End Date Jackson Rapp MD #2 [facility] [address] [place] [address] PCP - General Family Medicine 03/01/23 Brooks Martinez MD #2 [facility] [address] [place] [address] Consulting Physician Colon and Rectal Surgery 03/16/23 Gabriel Price MD #2 [place] [address] Consulting Physician Pulmonary Disease 01/09/23 Ashvin Isbell MD #2 [facility] [address] [place] [address] Consulting Physician General Surgery 10/05/23 Nacho Mayo MD #2 [facility] [address] [place] [address] Consulting Physician Urology 12/12/23 documented as of this encounter
--- OUTSIDE RECORDS SUMMARY | 2024-04-22 10:14 | XMS_ITS | Encounter Summary ---
Author Organization [facility] Address [address] [place] [address] Phone Care Team Providers Care Under Water Assistant Name Role Phone Jackson Rapp MD Primary Care Provider [phone] Brooks Martinez MD Unavailable Gabriel Price MD Unavailable Ashvin Isbell MD Unavailable [phone] Nacho Mayo MD Unavailable Reason for Visit * Reason Comments Medication Refill Encounter Details Date Type Department Care Team (Late st Contact Info) Description 01/31/2024 Refill [facility] - Family Medicine [facility] [address] [place] [address] Jackson Rapp MD #[address] [address] Medication Refill Social History Tobacco Use Types Packs/Day Years Used Date Smoking Tobacco: Never Smokeless Tobacco: Never Alcohol Use Standard Drinks/Week Comments Never 0 (1 standard drink = 0.6 oz pur e alcohol) [facility] Utilities Answer Date Recorded In the [...] and Family Not on file 06/07/2023 Attends Confucianism Services Not on file 06/06 Active Member [...] Total Score - Questions 1-9 0 12/19 [facility] of Occupat ional Health - Occupational [...] Job Start Date Job End Date 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 Esomeprazole Magnesium Dispensed Days Supply Quantity Provider Pharmacy [facility] [address] [facility] 01/31/2024 90 90 Capsule Jackson Rapp MD [id number] ... [facility] [address] [place] 11/20/2023 90 90 Capsule Jackson Rapp MD [id number] ... NICAL SERVICES REP documented in this encounter Plan of Treatment Upcoming Encounters Date Type Department Care Team (Late st Contact Info) Description 05/26/2024 9:30 AM CDT Office Visit [facility] - Family Medicine - [place] [address] [place] [address] Jackson Rapp MD #[address] [address] 09/02/2024 10:15 AM CDT Office Visit [facility] - Pulmonology & Sleep Medicine [facility] #2 [place] [phone] Gabriel Price MD #2 [place] [address] documented as of this encounter Visit Diagnoses Not on filedocumented in this encounter Additional Health Concerns Infection Onset Date Last Indicated Resolved Time ESBL 02/18/2019 02/18/2019 Assessment Noted Time PHQ-9 Depression Total Score: 0 01/17/20 9:13 AM CDT documented as of this encounter Care Teams Under Water Assistant Relationship Specialty Start Date End Date Jackson Rapp MD #[address] [address] PCP - General Family Medicine 03/01/23 Brooks Martinez MD #[address] [address] Consulting Physician Colon and Rectal Surgery 03/16/23 Gabriel Price MD #2 [facility] [place] [place] [address] Consulting Physician Pulmonary Disease 01/09/23 Ashvin Isbell MD #2 [facility] [address] [place] [address] Consulting Physician General Surgery 10/05/23 Nacho Mayo MD #2 [facility] [address] [place] [address] Consulting Physician Urology 12/12/23 documented as of this encounter
--- OUTSIDE RECORDS SUMMARY | 2024-04-22 10:14 | XMS_ITS | Encounter Summary ---
Author Organization [facility] Address [address] [place] [address] Phone Care Team Providers Care Service Cleaner Name Role Phone Jackson Rapp MD Primary Care Provider [phone] Brooks Martinez MD Unavailable Gabriel Price MD Unavailable Ashvin Isbell MD Unavailable [phone] Nacho Mayo MD Unavailable Reason for Visit * Reason Comments Medication Refill Encounter Details Date Type Department Care Team (Late st Contact Info) Description 03/28/2024 Refill [facility] - Family Medicine [facility] #2 [place] [address] Jackson Rapp MD #[address] [address] Medication Refill Social History Tobacco Use Types Packs/Day Years Used Date Smoking Tobacco: Never Smokeless Tobacco: Never Alcohol Use Standard Drinks/Week Comments Never 0 (1 standard drink = 0.6 oz pur e alcohol) [facility] Utilities Answer Date Recorded In the [...] and Family Not on file 06/07/2023 Attends Gnosticist Services Not on file 06/06 Active Member [...] Total Score - Questions 1-9 0 12/19 [facility] of Occupat ional Health - Occupational [...] Date Job End Date 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 Not on file Not on file documented as of this encounter Miscellaneous Notes * Telephone Encounter - Lucie Zavala RN - 03/31/2024 7:57 AM CST New Rx already sent in UP GUIDER OPERATOR * Telephone Encounter - Lucie Zavala RN - 03/28/2024 3:16 PM CST duplicate UP GUIDER OPERATOR documented in this encounter Plan of Treatment Upcoming Encounters Date Type Department Care Team (Late st Contact Info) Description 05/26/2024 9:30 AM CDT [facility] - [place] [address] [place] [address] Jackson Rapp MD #[address] [facility] [address] [address] 09/02/2024 10:15 AM CDT Office Visit [facility] - Pulmonology & Sleep Medicine [facility] #2 [place] [address] Gabriel Price MD #2 [place] [address] documented as of this encounter Visit Diagnoses Not on filedocumented in this encounter Additional Health Concerns Infection Onset Date Last Indicated Resolved Time ESBL 02/18/2019 02/18/2019 Assessment Noted Time PHQ-9 Depression Total Score: 0 01/17/20 9:13 AM CDT documented as of this encounter Care Teams Service Cleaner Relationship Specialty Start Date End Date Jackson Rapp MD #[address] [address] PCP - General Family Medicine 03/01/23 Brooks Martinez MD #[address] [address] Consulting Physician Colon and Rectal Surgery 03/16/23 Gabriel Price MD #2 [place] [address] Consulting Physician Pulmonary Disease 01/09/23 Ashvin Isbell MD #2 [facility] [address] [place] [address] Consulting Physician General Surgery 10/05/23 Nacho Mayo MD #[address] [address] Consulting Physician Urology 12/12/23 documented as of this encounter
== END 2024-04-22 09:39 | disposition home or self-care (01) ==
PROVIDERS: PCP Family Medicine; Visit Provider Nurse Practitioner
DX: N20.0 Calculus of kidney (principal)
CPT/HCPCS: 74176

== ENCOUNTER 2025-03-03 14:39 | Outpatient (CLI) | payer MEDICARE, SELFPAY ==
--- NOTE | ~2025-03-03 | XR_ITS ---
XR lumbar spine min 4V Indication: Facet arthropathy, lumbar Comparison: None Findings: Grade 1 anterolisthesis of L4 on L5, moderate osteopenia, no acute fracture No subluxation with flexion and extension Moderate loss of disc height throughout Soft tissues unremarkable Impression: No acute abnormality. Reviewed, dictated and finalized at location [facility] Impression: No acute abnormality.
== END 2025-03-03 14:40 | disposition home or self-care (01) ==
LOC: MICIMG 14:41
PROVIDERS: PCP Family Medicine; Visit Provider Nurse Practitioner Family
DX: M47.816 Spondylosis without myelopathy or radiculopathy, lumbar region (principal)
CPT/HCPCS: 72110